=== PATIENT | female | born 1945 | race Caucasian/White ===

== ENCOUNTER 2019-10-02 21:25 | Emergency (ER) | payer MEDICARE, BC, OTHER, SELFPAY ==
--- NOTE | ~2019-10-02 | CT_ITS ---
EXAMINATION: CT brain wo con DATE: 10/02/2019 22:11 INDICATION: Speech deficit. TECHNIQUE: Computed tomography (CT) of the head was performed without intravenous contrast. The mA wa s adjusted according to patient size. Iterative reconstruction technique was employed. The dose-lengt h product was 605.33 mGy-cm. COMPARISON: None FINDINGS: There is a hyperdensity in the left parietal sulcus, likely acute subarachnoid hemorrhage. There are scattered areas of low attenuation in the cerebral white matter. There is no acute ischemic infarct or abnormal mass lesion. The ventricles are normal in size. There is a trace right mastoid e ffusion. There is mild mucosal thickening in the ethmoid sinuses. There are likely changes of ocular lens replacement surgeries. IMPRESSION: 1. Small volume of acute subarachnoid hemorrhage in a left parietal sulcus. 2. Mild nonspecific cerebral white matter disease, which likely represents chronic small vessel ische bela disease. Reviewed, dictated and finalized at location A. [employer] .NET DEVELOPER IMPRESSION: 1. Small volume of acute subarachnoid hemorrhage in a left parietal sulcus. 2. Mild nonspecific cerebral white matter disease, which likely represents downstairs maid silvia small vessel ischemic disease.
[2019-10-02 21:34] VITALS: BP 186/112; PULSE 109; RESP 18; TEMP 37.1; O2SAT 98
--- NOTE | 2019-10-02 21:56 | ED.NEUROSD ---
HPI - Neuro Symptoms/Deficit General Chief Complaint: Neuro Symptoms/Deficit Stated Complaint: difficulty speaking Time Seen by Provider: 10/02/19 21:28 Source: patient and RN notes reviewed Mode of arrival: ambulatory Limitations: no limitations History of Present Illness HPI Narrative: Pt is a 74 y/o female who presents to the ED with c/o a headache which occurred this morning. She states she went back to bed to try to alleviate her headache. She reports her headache was resolved when she woke up from her nap. However, when she woke up, she started to experience increased confusion and increased generalized weakness. She reports she was trying to speak to her son, but was unable to formulate her words. However, she denies a fever, chest pain, SOB, a cough, N/V/D, dysuria, urinary frequency, or a fall due to her symptoms. Onset (ago): hour(s) (this morning) Location: speech (unable to formulate her words properly) and other (increasingly confused) History of same: No Relieving factors: none Exacerbating factors: none Context: sudden onset (after awaking from her nap) Associated symptoms: confusion and weakness (increased) Related Data Home Medications Medication Instructions Recorded Confirmed acetaminophen 650 mg PO Q12H PRN 09/14/19 famotidine 20 mg PO DAILY 09/14/19 fluticasone propionate [Flonase 1 spray INTRANASAL BID PRN 09/14/19 Allergy Relief] loratadine 10 mg PO DAILY 09/14/19 meloxicam 15 mg PO DAILY 09/14/19 metformin 500 mg PO BID 09/14/19 omeprazole 20 mg PO DAILY 09/14/19 Allergies Allergy/AdvReac Type Severity Reaction Status Date / Time morphine Allergy Other Verified 10/02/19 21:41 sulfamethoxazole Allergy Confusion Verified 10/02/19 21:41 [From Bactrim] trimethoprim [From Bactrim] Allergy Confusion Verified 10/02/19 21:41 tramadol AdvReac Itching Verified 10/02/19 21:41 Review of Systems Review of Systems: All systems reviewed & are unremarkable except as noted in HPI and below Constitutional: Constitutional: Denies fever(s), Reports weakness (increased) and Denies other (a fall due to her symptoms) Cardiovascular: Cardiovascular: Denies chest pain Respiratory: Respiratory: Denies cough and Denies dyspnea Gastrointestinal: Gastrointestinal: Denies diarrhea, Denies nausea and Denies vomiting Genitourinary: Genitourinary: Denies nocturia and Denies dysuria Neurologic: Reports headache(s) and Reports other (increased confusion; unable to formulate words) [facility] Past Medical History Medical History (Updated 10/03/19 @ 00:49 by Lacho Teresa MD) Diabetes Surgical History Surgical History (Updated 10/02/19 @ 22:00 by Viridiana Schroeder) No pertinent past surgical history Social History Social History (Updated 10/02/19 @ 22:00 by Viridiana Schroeder) Smoking status: Smoker, status unknown Gender identity (if verbalized by the patient): Female Exam Narrative: Exam Narrative: Constitutional: Healthy appearing, no acute distress, well nourished. HENMT: Lips normal, moist mucous membranes. Eyes: Conjunctive normal, PERRL Resp: Normal respiratory effect, clear to auscultation bilaterally. Cardio: Regular rhythm, no murmurs. Tachycardia. GI: Soft, non-tender, normal bowel sounds. Back/Spine/Pelvis: Full ROM Skin: Normal color, dry skin, warm Neuro: Oriented x 3, alert, normal speech Extremities: Full ROM Psych: Mental status grossly normal, normal affect. Course Consultations Consultation #1: Discussed case with Dr. Gallardo, ED Accepting Physician, who agrees pt for the transfer after discussing with neurosurgery. Date: 10/02/19 Time: 23:23 Vital Signs Vital signs: Vital Signs Temperature 37.1 C 10/02/19 21:34 Pulse Rate 109 H 10/02/19 21:34 Respiratory Rate 18 10/02/19 21:34 Blood Pressure 186/112 H 10/02/19 21:34 Pulse Oximetry 98 10/02/19 21:34 Temperature 37.1 C 10/02/19 21:34 Pulse Rate 103 H 10/03/19 00:11 Respiratory Rate 22 H 0
[2019-10-02 22:44] LABS: Basophils Absolute Auto 0.1 K/mm3 (0.0-0.1); Basophils Percent Auto 0.9 % (0.2-1.2); Eosinophils Absolute Auto 0.1 K/mm3 (0-0.3); Eosinophils Percent Auto 1.1 % (0-4.4); Hemoglobin 14.4 g/dL (12.0-15.0); Immature Granulocyte Absolute 0.02 K/mm3 (0.00-0.031); Immature Granulocyte Percent A 0.3 % (0-0.5); Lymphocytes Absolute Auto 1.21 K/mm3 (0.9-3.2); Lymphocytes Percent Auto 18.8 % (18.3-44.2); Mean Corpuscular HGB Conc 34.3 g/dl (32-36); Mean Corpuscular Hemoglobin 31.4 pg (26-34); Mean Corpuscular Volume 91.5 fl (80-100); Mean Platelet Volume 8.9 fl (7.4-10.4); Monocytes Absolute Auto 0.6 K/mm3 (0.1-0.6); Neutrophils Absolute Auto 4.5 K/mm3 (1.3-6.7); Neutrophils Percent Auto 69.9 % (45.5-73.1); Platelet Count Result 257 k/mm3 (150-375); Red Blood Count 4.59 M/mm3 (4.2-5.4); Red Cell Distribution Width 12.9 % (11.5-14.5); White Blood Count 6.4 K/mm3 (4.5-10.0)
[2019-10-02 22:48] LABS: Add Urine Microscopic? YES; Appearance Urine Clear (Clear); Bacteria Urine 2+ /hpf; Bilirubin Urine Negative (Negative); Blood Urine Negative (Negative); Color Urine Straw (Yellow); Glucose Urine UA Negative (Negative); Ketones Urine 1+ mg/dL (Negative); Leukocyte Esterase Ur 1+ LEU/UL (Negative); Nitrate Urine Negative (Negative); Protein Urine Negative (Negative); RBC Urine 0-2 /hpf (0-2); Specific Grav Ur 1.012 (1.001-1.035); Squamous Epithelial Cell Urine Rare /hpf (Few); Urobilinogen Urine Negative mg/dL (<2.0); WBC Urine 21-30 /hpf
[2019-10-02 22:54] LABS: Prothrombin Time 12.6 Seconds (11.1-14.7)
[2019-10-02 22:57] VITALS: BP 145/72; PULSE 109; RESP 22; O2SAT 97
[2019-10-02 22:57] LABS: Alanine Aminotransferase 35 U/L (4-35); Albumin Level 4.3 g/dL (3.5-5.1); Alkaline Phosphatase 64 U/L (38-126); Aspartate Amino Transferase 26 U/L (14-36); Bilirubin,Total 0.3 mg/dL (0.2-1.3); Blood Urea Nitrogen 15 mg/dL (7-17); Calcium 9.5 mg/dL (8.4-10.2); Carbon Dioxide 21 mmol/L (22-30); Chloride 102 mmol/L (98-107); Estimated CRCL calculation 97 ml/min; Estimated Glomerular Filt Rate > 60; Glucose 121 mg/dL (65-105); Potassium 3.9 mmol/L (3.4-5.0); Sodium 134 mmol/L (137-145)
[2019-10-02] MEDS: SODIUM CHLORIDE 0.9% IV 1,000 ML 999 ML IV CONT (23:00)
[2019-10-03 00:11] VITALS: BP 166/82; PULSE 103; RESP 22; O2SAT 99
--- NOTE | 2019-10-03 00:15 | PC.NURSE ---
Called [facility] to transport patient to [place]. [facility] declined
[2019-10-03 01:02] VITALS: BP 156/69; PULSE 108; RESP 22; O2SAT 96
[2019-10-03 01:13] VITALS: BP 156/69; PULSE 106; RESP 22; O2SAT 95
--- NOTE | 2019-10-03 01:14 | PC.NURSE ---
called [facility] to transport patient to [place]. ETA [phone]
== END 2019-10-03 01:15 | disposition short-term general hospital (02) ==
PROVIDERS: Emergency Provider Emergency Medicine; PCP Family Medicine
DX: I60.9 Nontraumatic subarachnoid hemorrhage, unspecified (principal); N39.0 Urinary tract infection, site not specified; E11.9 Type 2 diabetes mellitus without complications; Z79.84 Long term (current) use of oral hypoglycemic drugs; R51 Headache
CPT/HCPCS: 36415; 70450; 80053; 81001; 85025; 85610; 85730; 87077; 87086; 87088; 87186; 96365; 99291; J0696; J7030

== ENCOUNTER 2021-12-09 07:43 | Outpatient (CLI) | payer MEDICARE, BC, OTHER, SELFPAY ==
--- NOTE | ~2021-12-09 | MR_ITS ---
EXAMINATION: MR brain/brain stem wo/w con EXAM DATE: 12/09/2021 08:46 INDICATION: Unsteady gait . TECHNIQUE: Magnetic resonance imaging (MRI) of the brain/brain stem obtained without contrast. Sagit willi T1, axial diffusion, gradient echo (T2*), T1, T2, FLAIR sequences obtained. Patient was then inj ected with 18 cc intravenous Multihance contrast. Axial and coronal postcontrast T1 weighted sequence s obtained. Correlation is made to . Head CT 10/02/2019 FINDINGS: There are no areas of restricted diffusion to suggest acute infarction. There is no acute hemorrhage seen on the T2*, a hemosiderin sensitive sequence. No intraparenchymal brain mass lesion. There is mild periventricular and subcortical T2/FLAIR signal hyperintensity, nonspecific but probab ly related to small vessel ischemic disease (microangiopathy). There are no extra-axial collections . Flow voids are seen in the cerebral arteries on the T2-weighted sequences consistent with their ex pected patency. The orbits are unremarkable. Soft tissue is unremarkable. There are no areas of ab normal enhancement on the postcontrast images. IMPRESSION: Mild microangiopathy. Reviewed, dictated and finalized at location B. IMPRESSION: Mild microangiopathy.
[2021-12-09 08:23] LABS: Estimated Glomerular Filt Rate > 60
== END 2021-12-09 07:44 | disposition home or self-care (01) ==
LOC: ANHIMG 07:48
PROVIDERS: PCP Internal Medicine; Visit Provider Internal Medicine
DX: R26.81 Unsteadiness on feet (principal); R93.0 Abnormal findings on diagnostic imaging of skull and head, not elsewhere classified
CPT/HCPCS: 70553; A9577

== ENCOUNTER 2021-12-26 01:30 | Day surgery (SDC) | payer MEDICARE, BC, OTHER, SELFPAY ==
[2021-12-17 10:41] VITALS: BMI 34.7
[2021-12-26 07:42] VITALS: BP 127/75; PULSE 110; RESP 18; TEMP 36.7; O2SAT 98; BMI 33.7
--- NOTE | 2021-12-26 07:45 | WPDANESEPPF ---
Anes - Initial Pre Proc Eval Procedure: Operation Date: 12/26/21 08:30 Proposed Procedures p Screening Colonoscopy - Get Gan MD Date/Time: 12/26/21 07:45 Surgeon: Get Gan MD Pre Op Diagnosis: neoplasm screening Patient Data Age: 76 Gender: F Height: 1.57 m Weight: 86.3 kg Allergies Allergy/AdvReac Type Severity Reaction Status Date / Time aloe Allergy Itching Verified 12/26/21 07:40 morphine Allergy Other Verified 12/26/21 07:40 sulfamethoxazole Allergy Confusion Verified 12/26/21 07:40 [From Bactrim] trimethoprim [From Bactrim] Allergy Confusion Verified 12/26/21 07:40 tramadol AdvReac Itching Verified 12/26/21 07:40 Home Medications Medication Instructions Recorded Confirmed Type acetaminophen 650 mg PO Q12H PRN 09/14/19 12/17/21 History famotidine 20 mg PO DAILY 09/14/19 12/17/21 History fluticasone propionate [Flonase 1 spray INTRANASAL BID PRN 09/14/19 12/17/21 History Allergy Relief] metformin 500 mg PO BID 09/14/19 12/17/21 History omeprazole 20 mg PO DAILY 09/14/19 12/17/21 History calcium carbonate-vitamin D3 [All 1 tablet PO DAILY 12/17/21 12/17/21 History Day Calcium] cholecalciferol (vitamin D3) 50 mcg PO DAILY 12/17/21 12/17/21 History [Vitamin D3] fexofenadine 180 mg PO DAILY 12/17/21 12/17/21 History glucosamine sulfate [Glucosamine] 500 mg PO DAILY 12/17/21 12/17/21 History mirabegron [Myrbetriq] 25 mg PO DAILY 12/17/21 12/17/21 History vitamin E 450 mg PO DAILY 12/17/21 12/17/21 History Patient hx anesthesia problems: none Family hx anesthesia problems: none Results Review: All pre-operative results and documents have been reviewed as part of the pre-operative evaluation. [facility] Past Medical History Medical History (Updated 12/26/21 @ 07:47 by Avtar Coles MD) CVA (cerebral vascular accident) Diabetes PUD (peptic ulcer disease) Surgical History Surgical History (Updated 02/02/20 @ 22:00 by Viridiana Schroeder) No pertinent past surgical history Social History Social History (Updated 10/02/19 @ 22:00 by Viridiana Schroeder) Smoking status: Smoker, status unknown Substance use type: does not use Living arrangements: alone Gender identity (if verbalized by the patient): Female Spiritual care concerns: No Anes - Eval Final PreProcedure Day of Procedure 12/26/21 07:45 Patient weight: obese Heart: regular rate and rhythm Lungs: clear to auscultation and normal air movement Airway: Mallampati scale class II Neurological: alert and oriented Last oral intake: >/= 8 hours ASA classification: III Emergent: no Anesthetic plan: proceed Anesthesia type and monitoring: general GIVS Results Review: All pre-operative results and documents have been reviewed as part of the pre-operative evaluation. Informed Consent: The patient's anesthetic plan and its attendant risks and benefits were discussed with the patient/family/POA. Questions were solicited and answers provided to the satisfaction of the patient/family/POA.
[2021-12-26] MEDS: LACTATED RINGERS 1,000 ML 150 ML IV CONT (07:54)
[2021-12-26 08:07] LABS: Glucose Point of Care 116 mg/dl (65-105)
--- NOTE | 2021-12-26 08:25 | WPDGICN ---
Assessment and Plan Assessment and plan (1) Epigastric abdominal pain: Code(s): R10.13 - Epigastric pain Status: Acute Assessment and Plan: Patient complains of upper abdominal epigastric pain that is burning in nature after eating. Particularly with spicy foods. Pain is poorly responsive to current dose of both omeprazole and famotidine. She does give a distant history of ulcer disease 20 years ago. Plan is for EGD to assess more thoroughly. Further recommendations will be given after endoscopy. (2) Encounter for screening colonoscopy: Code(s): Z12.11 - Encounter for screening for malignant neoplasm of colon Status: Acute Assessment and Plan: Patient presents for screening colonoscopy. Appears to be at average risk for colon polyps. GI Consult Note Consult date/time: 12/26/21 08:25 HPI: Sultana Haider is a 76 year old female Presents for colonoscopy and EGD. Patient desires neoplasia screening colonoscopy. She reports her current weight appetite bowel movements normal. She denies abdominal pain. She has had no bleeding. Family history is noncontributory. Patient also complains of epigastric pain after eating she feels 3 distinct areas in the upper portion of her abdomen that her burning this occurs shortly after eating. She states that 21 years ago had an endoscopy and was found to have several gastric ulcers. Since that time she has been maintained on omeprazole 20mg p.o. daily. This is also supplemented with famotidine 20mg p.o. daily and has failed to alleviate her epigastric burning pain. She denies any weight loss. She has had no bleeding. Family history is noncontributory. Patient's past medical history is significant for breast cancer 20 years ago. Review of Systems Review of Systems: All systems reviewed & are unremarkable except as noted in HPI and below [facility] Past Medical History Medical History (Updated 12/26/21 @ 08:27 by Get Gan MD) CVA (cerebral vascular accident) Diabetes PUD (peptic ulcer disease) Surgical History Surgical History (Updated 10/02/19 @ 22:00 by Viridiana Schroeder) No pertinent past surgical history Social History Social History (Updated 10/02/19 @ 22:00 by Viridiana Schroeder) Smoking status: Smoker, status unknown Substance use type: does not use Living arrangements: alone Gender identity (if verbalized by the patient): Female Spiritual care concerns: No Meds Home Medications and Allergies Home Medications Medication Instructions Recorded Confirmed Type acetaminophen 650 mg PO Q12H PRN 09/14/19 12/17/21 History famotidine 20 mg PO DAILY 09/14/19 12/17/21 History fluticasone propionate [Flonase 1 spray INTRANASAL BID PRN 09/14/19 12/17/21 History Allergy Relief] metformin 500 mg PO BID 09/14/19 12/17/21 History omeprazole 20 mg PO DAILY 09/14/19 12/17/21 History calcium carbonate-vitamin D3 [All 1 tablet PO DAILY 12/17/21 12/17/21 History Day Calcium] cholecalciferol (vitamin D3) 50 mcg PO DAILY 12/17/21 12/17/21 History [Vitamin D3] fexofenadine 180 mg PO DAILY 12/17/21 12/17/21 History glucosamine sulfate [Glucosamine] 500 mg PO DAILY 12/17/21 12/17/21 History mirabegron [Myrbetriq] 25 mg PO DAILY 12/17/21 12/17/21 History vitamin E 450 mg PO DAILY 12/17/21 12/17/21 History Allergies Allergy/AdvReac Type Severity Reaction Status Date / Time aloe Allergy Itching Verified 12/26/21 07:40 morphine Allergy Other Verified 12/26/21 07:40 sulfamethoxazole Allergy Confusion Verified 12/26/21 07:40 [From Bactrim] trimethoprim [From Bactrim] Allergy Confusion Verified 12/26/21 07:40 tramadol AdvReac Itching Verified 12/26/21 07:40 Vital Signs Vital Signs - 24 hr 12/26/21 07:42 Temperature 98.1 F Pulse Rate 110 H Respiratory Rate 18 Blood Pressure 127/75 Pulse Oximetry 98 Exam Narrative: Physical exam reveals patient to be alert. Vital signs stable. HEENT exam
[2021-12-26] MEDS: BENZOCAINE (*SP) 60 ML SPRAY CAN (HURRICAINE) 1 SPRAY MUCOUS MEM (08:40)
--- NOTE | 2021-12-26 08:53 | SUR.OPER ---
EGD ended at 845. Colonoscopy started at 852.
[2021-12-26 09:10] VITALS: BP 85/51; PULSE 88; RESP 17; O2SAT 94
[2021-12-26 09:20] VITALS: BP 110/68; PULSE 92; RESP 18; O2SAT 95
[2021-12-26 09:30] VITALS: BP 122/57; PULSE 93; RESP 23; O2SAT 95
== END 2021-12-26 09:41 | disposition home or self-care (01) ==
PROVIDERS: PCP Internal Medicine; Visit Provider Internal Medicine Gastroenterology
PROC: 0DJ08ZZ Inspection of Upper Intestinal Tract, Via Natural or Artificial Opening Endoscopic (ICD-10-PCS; CPT 43235; principal; 2021-12-26 08:30)
DX: Z12.11 Encounter for screening for malignant neoplasm of colon (principal); D12.2 Benign neoplasm of ascending colon; K64.8 Other hemorrhoids; R10.13 Epigastric pain; E11.9 Type 2 diabetes mellitus without complications; Z86.73 Personal history of transient ischemic attack (TIA), and cerebral infarction without residual deficits; Z87.11 Personal history of peptic ulcer disease; Z79.84 Long term (current) use of oral hypoglycemic drugs; E66.9 Obesity, unspecified; Z68.33 Body mass index [BMI] 33.0-33.9, adult
CPT/HCPCS: 45385; 43239; 82948; 87081; 88305; J7120

== ENCOUNTER → 2022-02-12 13:29 | Outpatient (CLI) | payer MEDICARE, BC, SELFPAY ==
--- NOTE | ~2022-02-12 | DEXA_ITS ---
Bone Density Report Name: FADY JETER Age: 76 Sex: Female Ethnicity: White Date of : 1945 Indication: postmenopausal; screening for osteoporosis; parental hip fracture; height loss; prior fracture; hysterectomy; Referring Provider: Benji, Megan Study: Bone densitometry was performed. Exam Date: February 12, 2022 Accession number: [id number] Bone Density: Region BMD T-score Z-score Classification AP Spine (L1, L3, L4) 1.180 1.2 3.7 Normal Femoral Neck (Left) 0.599 -2.3 -0.1 Osteopenia Total Hip (Left) 0.777 -1.3 0.5 Osteopenia Femoral Neck (Right) 0.704 -1.3 0.8 Osteopenia Total Hip (Right) 0.827 -0.9 0.9 Normal Total Hip Mean 0.802 -1.1 0.7 Osteopenia World Health Organization criteria for BMD impression classify patients as: Normal (T-score at or above -1.0), Osteopenia (T-score between -1.0 and -2.5), or Osteoporosis (T-score at or below -2.5). 10-year Fracture Risk: FRAX not reported because: Treated for osteoporosis Clinical Information Provided by Patient: Has had a low trauma fracture Parent has had a hip fracture Is being treated for osteoporosis Has used the following medications: Fosamax (i.e. alendronate), Vitamin D, Calcium Has the following medical conditions: Hysterectomy, Left breast ca stage 4 mastectomy with chemo/radiation -1999 Patient maximum height was 65.5 Menopause Age: 28 Does not regularly consume dairy products Drinks caffeinated beverages Onset of menses at age 16 Number of children 2 Impression: The patient has low bone mass, based on the Left Femoral Neck T-score. The patient has risk factors, including: parental hip fracture, previous fracture. Discussion: It is important to ask patients whether they are taking their medications and to encourage continued and appropriate compliance with their osteoporosis therapies to reduce fracture risk. It is also important to review their risk factors and encourage appropriate calcium and vitamin D intakes, exercise, fall prevention and other lifestyle measures. Follow-Up: Consider a repeat BMD and Vertebral Fracture Assessment (VFA) exam in 2 years or sooner if medically necessary, to reassess this patient's status. Reported by: CHRISTIAN on 02/12/2022 3:51:00 PM. Reviewed, dictated and finalized at location Malini DESAI
--- NOTE | ~2022-02-12 | MM_ITS ---
EXAMINATION: MM scrn francisco javier implant RT w minnie HISTORY: Screening mammogram TECHNIQUE: Craniocaudal and mediolateral oblique 3-D tomosynthesis images with implant displacement a nd synthetic 2-D images were generated. Craniocaudal and mediolateral oblique views of the breasts wi thout implant displacement were obtained using full field digital mammography. CAD analysis was submi tted and interpreted. COMPARISON: No prior mammogram is available for comparison at this institution. BREAST PARENCHYMAL COMPOSITION: There are scattered areas of fibroglandular density. FINDINGS: There is a subpectoral silicone implant which appears partially collapsed. There is no evid ence of suspicious mass, calcification, or architectural distortion to suggest malignancy in the righ t breast. There has been no suspicious interval change. IMPRESSION: 1. No mammographic evidence of malignancy. 2. Recommend routine screening mammography in one year. BI-RADS Category 1: Negative Reviewed, dictated and finalized at location A.
== END ==
PROVIDERS: PCP Internal Medicine; Visit Provider Internal Medicine
DX: Z12.31 Encounter for screening mammogram for malignant neoplasm of breast (principal); Z78.0 Asymptomatic menopausal state; M85.852 Other specified disorders of bone density and structure, left thigh; M85.851 Other specified disorders of bone density and structure, right thigh
CPT/HCPCS: 77063; 77067; 77080

== ENCOUNTER 2024-02-04 12:20 | Outpatient (CLI) | payer MEDICARE, BC, OTHER, SELFPAY ==
--- NOTE | ~2024-02-04 | US_ITS ---
US soft tissue chest Ordering provider: Megan Leblanc, History: . LUMP OF SKIN . Comparison: None. Technique: Ultrasound of the area of concern inferior to the left breast is done. FINDINGS/impression: No definite abnormality seen. Reviewed, dictated and finalized at location A.
== END 2024-02-04 12:21 | disposition home or self-care (01) ==
LOC: ANHIMG 12:20
PROVIDERS: PCP Internal Medicine; Visit Provider Internal Medicine
DX: R22.2 Localized swelling, mass and lump, trunk (principal)
CPT/HCPCS: 76604

== ENCOUNTER 2025-04-30 18:03 | Emergency (ER) | payer MEDICARE, BC, OTHER, SELFPAY ==
--- NOTE | ~2025-04-30 | XR_ITS ---
EXAMINATION: XR shoulder RT min 2V DATE: 04/30/2025 23:39 INDICATION: Right shoulder pain post fall TECHNIQUE: AP internally rotated, AP externally rotated and transscapular Y views of the right shoulder were obtained. COMPARISON: None FINDINGS: Normal alignment. No fracture. Moderate osteoarthritis at the right acromioclavicular joint. Severeosteoarthritis at the right glenohumeral joint with large marginal ossified swelling the inferomedial aspect of the humeral head. Loose osteochondral body at the deep subscapular recess.Old fracture with callus formation at the posterior right fourth-seventh ribs. Soft tissues are unremarkable. Visualized portion of the right lung are clear IMPRESSION: 1. Severe right glenohumeral and moderate acromioclavicular osteoarthritis without acute osseous abnormality at the right shoulder. 2. A few old healed posterior right rib fractures. Reviewed, dictated and finalized at location A. IMPRESSION: 1. Severe right glenohumeral and moderate acromioclavicular osteoarthritis with out acute osseous abnormality at the right shoulder. 2. A few old healed posterior right rib fractures.
--- NOTE | ~2025-04-30 | CT_ITS ---
EXAMINATION: CT cervical spine wo con DATE: 04/30/2025 23:36 INDICATION: Fall with neck pain. TECHNIQUE: Computed tomography (CT) of the cervical spine was performed without intravenous contrast. Automated exposure control and iterative reconstruction technique were employed. The dose-length product was 236.29 mGy-cm. COMPARISON: None FINDINGS: Severe osteoarthritis at the atlantoaxial articulation. 3 mm anterolisthesis C4 on C5 and 1-2 mm anterolisthesis C6 on C7. Minimal likely developmental central invagination of the superior and inferior endplates of C3. Vertebral body heights otherwise normal. No acute fracture. Moderate to severe disc height loss with severe right and moderate left uncovertebral osteoarthritis at C5-C6. Mild disc height loss at C4-C5 and C6-C7. No central canal stenosis. Bilateral multilevel moderate and severe cervical facet osteoarthritis which contribute to mild neural foraminal stenosis on the left at C4-C5 and C5-C6 and on the right at C3-C4, C5-C6 and C6-C7. Atherosclerotic calcific lesions at the bilateral c arotid bulbs. Cervical soft tissues are otherwise unremarkable. Apical pleural- parenchymal scarring, moderate on the left and mild on the right. IMPRESSION: 1. Moderate to severe cervical spondylosis without acute osseous abnormality. Reviewed, dictated and finalized at location A.
--- NOTE | ~2025-04-30 | CT_ITS ---
EXAMINATION: CT brain wo con DATE: 04/30/2025 19:42 INDICATION: Fall with head injury TECHNIQUE: Computed tomography (CT) of the head was performed without intravenous contrast. Sagittal and coronal reconstructions were performed. The mA was adjusted according to patient size. Iterative reconstruction technique was employed. The dose-length product was 681.00 mGy-cm. COMPARISON: head CT dated 10/02/2019 and brain MR dated 12/09/2021 FINDINGS: No fracture. No acute intracranial hemorrhage, acute infarction or abnormal extra axial fluid collection. Interval progression of now mild to moderate scattered white matter hypoattenuation consistent with chronic small vessel ischemic disease. Ventricles are normal and symmetric. No mass/mass effect. Changes of bilateral intraocular lens replacement. The orbits, paranasal sinuses and mastoid air cells are normal. IMPRESSION: 1. No fracture or acute intracranial process. 2. Interval progression of mild to moderate scattered white matter hypoattenuation consistent with chronic small vessel ischemic disease. Reviewed, dictated and finalized at location A. IMPRESSION: 1. No fracture or acute intracranial process. 2. Interval progression of mild to moderate scattered white matter hypoattenuat ion consistent with chronic small vessel ischemic disease.
--- NOTE | ~2025-04-30 | CT_ITS ---
EXAMINATION: CT diagnostic chest w con DATE: 04/30/2025 23:36 INDICATION: fall, trauma, R posterior rib pain TECHNIQUE: Computed tomography (CT) of the chest was performed with 100 mL Omnipaque-350 intravenous contrast. Additional 3D reconstructions utilizing coronal maximum intensity projection (MIP) were performed. Automated exposure control and iterative reconstruction technique were employed. The dose-length product was 509.36 mGy-cm. COMPARISON: None FINDINGS: Mild dependent atelectasis in the bilateral lower lobes. There is subpleural fibrosis along the anterior left upper lobe and lingula likely related to radiation treatment for left breast cancer with decrease in size of the left breast and multiple surgical clips consistent with prior left partial maste ctomy. No pneumonia, pulmonary edema, pleural effusion or pneumothorax. Heart size is normal. Atherosclerotic coronary artery calcification. No pericardial effusion. Thoracic aorta is normal in caliber with no dissection. No pathologically enlarged thoracic lymphadenopathy. Visualized upper abdomen is unremarkable. Severe right and moderate left glenohumeral osteoarthritis. Moderate thoracic spondylosis. There is calcification associated with subacute early chronic healing fractures of the posterior right fourth-seventh ribs. There is an acute nondisplaced fractures of the posterior right eighth rib. IMPRESSION: 1. Acute appearing nondisplaced posterior right eighth rib fracture with some additional subacute to early chronic healing fractures of the posterior right fourth-seventh ribs. No pneumothorax or other acute cardiopulmonary disease. Reviewed, dictated and finalized at location A. IMPRESSION: 1. Acute appearing nondisplaced posterior right eighth rib fracture with some a dditional subacute to early chronic healing fractures of the posterior right fo urth-seventh ribs. No pneumothorax or other acute cardiopulmonary disease.
--- NOTE | ~2025-04-30 | XR_ITS ---
EXAMINATION: XR chest 2V DATE: 04/30/2025 19:49 INDICATION: Rib pain post fall TECHNIQUE: PA and lateral views of the chest were obtained. COMPARISON: None FINDINGS: The lungs are clear with no focal airspace opacities, pulmonary edema, pleural effusion or pneumothorax. Heart size is normal. Likely prior partial left mastectomy with left breast appearing slightly smaller than the right with multiple surgical clips. Calcified formation about likely healing subacute fractures of the posterior right fourth-seventh ribs. Mild thoracolumbar levocurvature with moderate thoracic and moderate to severe upper lumbar spondylosis. Right glenohumeral osteoarthritis with moderate sized marginal osteophytes and prominent loose osteochondral body at the deep subscapular recess. IMPRESSION: 1. No acute cardiopulmonary disease. 2. A few likely subacute healing posterior right fourth-seventh rib fractures. Reviewed, dictated and finalized at location A.
--- OUTSIDE RECORDS SUMMARY | 2025-04-30 18:05 | XMS_ITS | Encounter Summary ---
Author Organization [employer] [facility] Address 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
--- OUTSIDE RECORDS SUMMARY | 2025-04-30 18:05 | XMS_ITS | Encounter Summary ---
Author Organization [facility] Address [address] [place] [address] Care Team Providers Care Tax Services Professional Name Role Phone Megan Leblanc MD Primary Care Provider [phone] Emiliano Ventura MD Unavailable Jagdish Aden MD Unavailable Encounter Details Date Type Department Care Team (Latest Contact Info) Description 03/08/2025 Results Follow-Up [facility] - [address] [address] [address] [place] [address] [place] [address] [place] [address] [address] [place], [place] [id number] CBC W/DIFF AUTOMATED, COMPREHENSIVE METABOLIC PANEL, LIPID PANEL, Additional followed-up results: 3 Social History Tobacco Use Types Packs/Day Years Used Date Smoking Tobacco: Never Smokeless Tobacco: Never Comments:Counseled by Dr. Hillary salas. Alcohol Use Standard Drinks/Week Comments Not Currently 3.3 (1 standard drink = 0.6 oz p ure alcohol) AUDIT-C Answer Date Recorded Q1: How often do you have a drink containing alcohol? Never 10/12/2024 Q2: How many drinks containi ng alcohol do you have on a typical day when you are drinking? Patient does not drink Q3: How often do you have si x or more drinks on one occasion? 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 Gender Identity Female 12/06/2024 8:08 AM CDT Sexual Orientation Straight 12/06/2024 8: 08 AM CDT documented as of this encounter Plan of Treatment Upcoming Encounters Date Type Department Care Team (Lynn Stanford) Description 05/02/2025 8:45 AM CDT Office Visit [facility] Physical Therapy [address] [place] [id number] Viv[address] [place], [place] [address] 05/02/2025 1:40 PM CDT Office Visit [facility] [address] [address] [address] [place] [address] Megan Leblanc MD [address] [place] [address] 05/09/2025 12:45 PM CDT Office Visit [facility] Physical [address] [address] Vivienne [place], [place] [address] 05/16/2025 1:30 PM CDT Office Visit [facility] Physical Therapy [address] [place] [phone] Vivienne Rapp, PT [place], [place] [id number] 05/23/2025 3:00 PM CDT Office Visit [facility] Physical Therapy [facility] [address] [address] Vivienne [place]ap, [place] [address] 05/30/2025 3:00 PM CDT Office Visit [facility] Physical Therapy [facility] [address] [address] Viv[place], [place] [address] 06/06/2025 3:00 PM CDT Office Visit [facility] Physical [address] [address] Vivienne Rapp, PT [place], [place] [id number] 10/25/2025 2:00 PM TENDERIZER TENDER Office Visit [facility] - [address] [address] [address] [place] [address] Megan Leblanc MD [address] [place] [address] 02/07/2026 2:20 PM CDT Office Visit [facility] - [address] [address] Jagdish Aden MD [address] [address] documented as of this encounter Visit Diagnoses Not on filedocumented in this encounter Additional Health Concerns Assessment Noted Time PHQ-9 Depression Total Score: 14 07/2 025 1:41 PM CDT documented as of this encounter Care Teams Tax Services Professional Relationship Specialty Start Date End Date Megan Leblanc MD [address] [address] PCP - General INTERNAL MEDICINE 10/23/21 Emiliano Ventura MD [address] [address] NEUROLOGY 10/12/24 Jagdish Aden MD [facility] [address] Consulting Physician Internal Medicine Pulmonary Disease 10/12/24 documented as of this encounter
--- OUTSIDE RECORDS SUMMARY | 2025-04-30 18:05 | XMS_ITS | Clinical Summary ---
Author Organization [facility] Address [address] [place] [address] Care Team Providers Care Air Conditioning Specialist Name Role Phone Megan Leblanc MD Primary Care Provider [phone] Emiliano Ventura MD Unavailable Jagdish Aden MD Unavailable [phone] Allergies Active Allergy Reactions Criticality Noted Date Comments Aloe Itching Low 09/13/2014 Sulfamethoxazole-Trimetho prim Other (see comment) 10/23/2021 Cramping, diarrhea, and confusion. Morphine Other (see comment),GI Upset 06/07/2013 Reaction: flu like symptoms, Nitrofurantoin Myalgias 10/29/2022 Nuts Hives High 09/13/2014 Tramadol Itching 10/23/2021 Medications fluticasone propionate 50 MCG/ACT nasal spray 1 spray by Nasal route daily. Active glucosamine-ramon droitin 500-400 MG Cap Take 1 capsule by mouth daily. Active Calcium Carbonate Antacid 600 MG Chew Tab Chew 1 tablet by mouth daily. Active vitamin E 450 MG (1000 UT) Cap Take by mouth daily. Active zinc gluconate 50 MG Tab Take 1 tablet (50 mg total) by mouth daily. Active Cholecalciferol (VITAMIN D3 IMMUNE HEALTH OR) Active Ascorbic Acid (VITAMIN C IMMUNE HEALTH OR) Active acetaminophen CR 650 MG Tab CR 8 hr tablet Active Magnesium 400 MG TabIndications:N europathy Take 400 mg by mouth daily. 90 tablet 3 3 Active lidocaine (HM LIDOCAINE PATCH) 4 % patchIndications :Musculoskeletal chest pain Place 1 patch onto the skin daily. Remove & Discard patch within 12 hours or as directed by 30 patch 3 Active Additional Information Patient not taking.Reported on 03/07/2025 CPAP DEVICE, DME,Indications: HOPE (obstructive sleep apnea) Use during sleep; sending to [employer]. 1 Device 3 Active valACYclovir (VALTREX) 1 g tabletIndication s:Herpes zoster without complication Take 1 tablet (1,000 mg total) by mouth 2 (two) times daily. 14 tablet 3 Active Vitamin B12 100 MCG tablet Take 0.5 tablets (50 mcg total) by mouth daily. Active metoprolol succinate ER (TOPROL-XL) 25 MG 24 hr tabletIndication s:Essential tremor Take 0.5 tablets (12.5 mg total) by mouth daily. 45 tablet 1 5 Active buPROPion SR (WELLBUTRIN SR) 150 MG 12 hr tabletIndication s:Mild episode of recurrent major depressive disorder Take 1 tablet (150 mg total) by mouth 2 (two) times daily. 180 tablet 1 5 Active albuterol sulfate HFA 108 (90 Base) MCG/ACT inhalerIndicatio ns:Allergic rhinitis due to other allergic trigger, unspecified seasonality Inhale 2 puffs into the lungs every 6 (six) hours as needed for Wheezing. 18 g 4 5 Active alendronate (FOSAMAX) 70 MG tabletIndication s:Age-related osteoporosis without current pathological fracture Take 1 tablet (70 mg total) by mouth every 7 days. 4 tablet 11 5 Active cyclobenzaprine (FLEXERIL) 5 MG tabletIndication s:Pleurisy,Acute right-sided thoracic back pain Take 1 tablet (5 mg total) by mouth nightly as needed. 14 tablet 5 Active diphenoxylate-at ropine (LOMOTIL) 2.5-0.025 MG tabletIndication s:Diarrhea, unspecified type Take 1 tablet by mouth nightly as needed for Diarrhea. 30 tablet 1 5 Active empagliflozin (JARDIANCE) 10 MG tabletIndication s:Type 2 diabetes mellitus with hyperglycemia, without long-term current use of insulin ([facility]) Take 1 tablet (10 mg total) by mouth daily. 90 tablet 3 5 Active famotidine (PEPCID) 20 MG tabletIndication s:Gastroesophage al reflux disease without esophagitis Take 1 tablet (20 mg total) by mouth daily. 60 tablet 5 5 Active losartan (COZAAR) 50 MG tabletIndication s:Hypertension associated with type 2 diabetes mellitus ([facility] HHS/HCC),Primary hypertension Take 1 tablet (50 mg total) by mouth daily. 90 tablet 3 5 Active omeprazole (PRILOSEC) 20 MG capsuleIndicatio ns:Gastroesophag eal reflux disease without esophagitis Take 1 capsule (20 mg total) by mouth 2 (two) times daily. 180 capsule 3 5 Active rosuvastatin (CRESTOR) 10 MG tabletIndication s:Hyperlipidemia associated with type 2 diabetes mellitus ([facility] HHS/HCC) Take 1 tablet (10 mg total) by mouth nightly at bedtime. at bedtime 90 tablet 3 5 Active oxyCODONE-acetam inophen (PERCOCET) 5-325 MG tabletIndication s:Acute Pain < 7 Day Supply Take 1-2 tablets by mouth every 8 (eight) hours as needed for Pain. Indications: Acute Pain < 7 Day Supply 10 tablet 5 Active sertraline (ZOLOFT) 50 MG tabletIndication s:Mild episode of recurrent major depressive disorder,SANDRA (generalized anxiety disorder) Take 1 tablet (50 mg total) by mouth daily. 90 tablet 1 5 Active vibegron (GEMTESA) 75 MG tabletIndication s:Mixed stress and urge urinary incontinence Take 1 tablet (75 mg total) by mouth daily. 90 tablet 5 Active Active Problems Problem Noted Date Diagnosed Date Mild episode of recurrent major depressive disor logan 09/27/2022 Primary hypertension 04/18/2022 Age-related osteoporosis wit hout current pathological fracture 10/23/2021 OAB (overactive bladder) 10/23/2021 History of hemorrhagic cereb rovascular accident (CVA) with residual deficit 06/05/2021 Assessment & Plan (10/23/2021 6:41 PM BANJO REPAIR PERSON): Currently stable without any residual deficits. Avoid NSAIDs. Continue to follow with neurology. No concerns at this time. Noted known hypertensive Memory difficulties 01/23/2021 Other secondary scoliosis, thoracolumbar region 03/20/2020 Diabetes mellitus ([facility]) 09/22/2019 Overview (12/31/2021): Controlled on Metformin. On lisinopril 2.5 mg daily. Lifestyle modification including dietary changes to include less saturated fats, lean meat, more vegetables and exercise at least 30 min every day. Assessment & Plan (10/23/2021 6:41 PM BANJO REPAIR PERSON): Controlled. A1c of 5.6%. On Metformin. Lifestyle modification discussed. Diabetic diet encouraged. Low back pain 09/22/2019 Lumbar spondylosis 09/22/2019 Abnormal vaginal Pap smear 02/11/2017 Overview (10/23/2021): 12/2016: ASCUS, +HR HPV (non- 16/18) 11/2015: not enough cells; +HR HPV 11/2013: normal cells: +HR HPV 01/2017: colpo: atrophy 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 Pseudophakia of both eyes 12/06/2014 Pain in joint 10/20/2013 GERD (gastroesophageal reflux disease) 3 Personal history of malignant neoplasm of breast 06/07/2013 Generalized osteoarthritis 06/01/2012 Overview (10/23/2021): Generalized osteoarthritis History of left mastectomy 06/01/2012 Overview (10/23/2021): H/O left mastectomy Insomnia 06/01/2012 Overview (10/23/2021): Insomnia Lymphedema of upper extremity 06/01/2012 Overview (10/23/2021): Lymphedema of arm Anxiety state 07/02/2010 Hyperlipidemia associated wi th type 2 diabetes mellitus ([facility]) Resolved Problems Problem Noted Date Diagnosed Date Resolved Date Malignant tumor of breast ([facility]/HCC [facility]/HCC) 09/22/2019 08/08/2024 Assessment & Plan (10/23/2021 6:41 PM BANJO REPAIR PERSON): Has been in remission since the year 1999. No new concerns. Close monitoring. No longer following with oncology. Encounters Date Type Department Care Team Description 04/25/2025 Telephone [facility] Physical Therapy [address] [address] Ansley Jennings, HOSPICE CLINICAL MANAGER No Show 04/24/2025 Telephone [facility] - [address], [address] [place] [address] Jagdish Aden MD Orders 04/11/2025 2:15 PM CDT Office Visit [facility] Physical Therapy [address] [address] Megan Leblanc MD Tolle, Lisa C, PT Back Pain 04/11/2025 Travel 04/04/2025 11:00 AM CDT Office Visit [facility] Physical Therapy [address] [address] Megan Leblanc MD Tolle, Lisa C, PT Low Back Pain; Balance Problem 04/04/2025 Travel 03/21/2025 8:45 AM CDT Office Visit [facility] Physical Therapy [address] [address] Megan Leblanc MD Meyer, Debra S, HOSPICE CLINICAL MANAGER Back Pain 03/14/2025 3:00 PM CDT Office Visit [facility] Physical Therapy [address] [address] Megan Leblanc MD Tolle, Lisa C, PT Back Pain; Balance Problem 03/14/2025 Travel 03/08/2025 Results Follow-Up [facility] [place] [address] [address] [facility] [address] [place] [address] Megan Leblanc MD CBC W/DIFF AUTOMATED, COMPREHENSIVE METABOLIC PANEL, LIPID PANEL, Additional followed-up results: 3 03/07/2025 12:40 PM CDT Office Visit [facility] [place] [address] [address] [facility] [address] [place] [address] Megan Leblanc MD Follow Up (Chronic medical issues); Anxiety; Depression; Diabetes; Osteoporosis; Osteoarthritis; Sleep Problem; GERD; IBS (W/ diarrhea ); Urinary Incontinence (H/o); Back Pain; Tremors 03/07/2025 Travel 02/15/2025 Telephone [facility] [place] [address] [address] [place] [address] [address] [place] [address] Megan Leblanc MD Medication Request 02/08/2025 11:00 AM CDT Office Visit [facility] [place] [address] [facility] [address] [place] [id number] Jagdish Aden MD Follow Up 02/08/2025 Travel 02/07/2025 Scan HEALTH INFO SRVCS Scanned, [facility] Sleep Study (SCAN) from Last 3 Months Immunizations Immunization Administration Dates Next Due Fluzone High Dose (IIV, triv alent, 0.5mL) 08/08/2024 Fluzone High Dose - >Age 65 (Prefilled Syringe) 07/31/2023,06/20/2022 Influenza (Generic) 05/15/2015, 4,06/01/2012,2010 Influenza Adult (Generic) 09/03/2021,10/2019,08/12/2017,2012 PFIZER COVID-19 (ORIGINAL FORMULATION, PURPLE CAP) mRNA, LNP-S, PF, 30 MCG/0.3 ML DOSE 09/03/2021 Pneumococcal (Pneumovax 23) 06/08/2019 Pneumococcal (Prevnar 13) 12/19/2015 Tdap (Generic) 09/13/2014 Zoster (Zostavax) [address] Unt/0.65Ml 04/18/2015 Family History Medical History Relation Comments Alzheimers Brother Diabetes Brother Heart Disease Brother Arthritis Daughter Diabetes Daughter Emphysema Father Heart Disease Father Mental Health Father Ulcer Father Poor circulation Maternal Grandfather Lost his l eg Elephantasis Maternal Grandmother Arthritis Mother Hypertension Mother Mental Health Mother Stroke Mother Arthritis Sister Mental Health Sister Diabetes Son Kidney Disease Son Relation Status Comments Brother Daughter Alive Father Maternal Grandfather Maternal Grandmother Mother Sister Son Social History Tobacco Use Types Packs/Day Years Used Date Smoking Tobacco: Never Smokeless Tobacco: Never Tobacco Cessation:Counseling Given: Yes Comments:Counseled by Dr. Leblanc. Alcohol Use Standard Drinks/Week Comments Not Currently [...] AM CDT Legal Sex Female 11:08 AM BANJO REPAIR PERSON Gender Identity Female 12/06/2024 8:08 AM CDT Sexual Orientation Straight 12/06/2024 8: 08 AM CDT Last Filed Vital Signs Vital Sign Reading Time Taken Comments Blood Pressure 128/85 03/07/2025 12:45 PM CDT Pulse 94 03/07/2025 12:31 PM CDT Temperature 36 C (96.8 F) 03/07/2025 12:31 PM CDT Respiratory Rate 16 03/07/2025 12:31 PM CDT Oxygen Saturation 98% 03/07/2025 12:31 PM CDT Inhaled Oxygen Concentration - - Weight 86.2 kg (190 lb 1.6 oz) 03/07/2025 12:31 PM CDT Height 157.5 cm (5' 2) 03/07/2025 12:31 PM CDT Body Mass Index 34.77 03/07/2025 12:31 PM CDT Plan of Treatment Upcoming Encounters Date Type Department Care Team (Late st Contact Info) Description 05/02/2025 8:45 AM CDT Office Visit [facility] Physical Therapy [facility] [address] Vivienne [place], [place] [address] 05/02/2025 1:40 PM CDT Office Visit [facility] Medical Group [facility] [place] [address] [address] [place] [address] Megan Leblanc MD [address] [address] 05/09/2025 12:45 PM CDT Office Visit [facility] Physical Therapy [address] [place] [address] Vivienne Rapp, PT [place], [place] [address] 05/16/2025 1:30 PM CDT Office Visit [facility] Physical Therapy [address] [place] [address] Vivienne Rapp, PT [place], [place] [id number] 05/23/2025 3:00 PM CDT Office Visit [facility] Physical Therapy [facility] [address] [address] Vivienne [place], [place] [address] 05/30/2025 3:00 PM CDT Office Visit [facility] Physical Therapy [address] [address] Vivienne [place], [place] [address] 06/06/2025 3:00 PM CDT Office Visit [facility] Physical Therapy [address] [address] Vivienne [place], [place] [address] 10/25/2025 2:00 PM BANJO REPAIR PERSON Office Visit [facility] Medical Group [facility] - [place] [address] [address] [place] [address] Megan Leblanc MD [address] [address] 02/07/2026 2:20 PM CDT Office Visit [facility] Medical Group [facility] - [address] [address] Jagdish Aden MD [address] [address] Health Maintenance Due Date Last Done Comments Kidney Health Evaluation 1945 COVID-19 Vaccine ( - season) 2024 09/03/2021, 11/03/2020 DTaP, Tdap and Td Vaccines (2 - Td or Tdap) 09/13/2024 09/13/2014 Diabetes: Retinopathy Eye Exam 10/31/2024 10/31/2022 Hemoglobin A1C 09/07/2025 03/07/2025, 120 05/2024, 01/13/2024, Additional history exists RSV Immunization or 60+ Years (1 - 1-dose 75+ series) 10/12/2025 Postponed from 2020 (Going to Outside Clinic) Zoster Vaccines (2 of 3) 10/12/2025 04/18/2015 Pos tponed from 06/13/2015 (Going to Outside Clinic) Annual Medicare Wellness Visit 10/13/2025 10/12/2024 Lipid Panel 03/07/2026 03/07/2025, 05/2024, 01/13/2024, Additional history exists Pneumococcal Vaccine: 50+ Years Completed 06/08/2019, 12/19/2015 Hepatitis C Completed 10/23/2021, 10/23/2021 Dexa Scan (General) Completed 02/12/2022, 06/03/2012, 06/03/2012 PHQ-2 (Physician [place]) Completed 03/07/2025 Meningococcal B Vaccine Aged Out No l onger eligible based on patient's age to complete this topic Meningococcal Vaccine Aged Out No saqib jenn eligible based on patient's age to complete this topic RSV Immunizations Under 20 Months Aged Out No longer eligible based on patient's age to complete this topic Procedures Procedure Name Priority Date/Time Associated Diagnosis Comments CBC W/DIFF AUTOMATED Routine 03/07/2025 1:23 PM CDT Drug therapy HEMOGLOBIN, GLYCOSYLATED Routine 03/07/2025 1:22 PM CDT Drug therapy TSH W/REFLEX Routine 03/07/2025 1:22 PM CDT Drug therapy LIPID PANEL Routine 03/07/2025 1:22 PM CDT Drug therapy COMPREHENSIVE METABOLIC PANEL Routine 03/07/2025 1:22 PM CDT Drug therapy COLLECTION VENOUS BLOOD VENIPUNCTURE Routine 03/07/2025 1:16 PM CDT Drug therapy URINALYSIS AUTO DIP Routine 03/07/2025 Drug therapy SLEEP STUDY GENERIC (SCAN ORDER) 02/07/2025 DIABETIC RETINOPATHY EXAM (NEGATIVE)(SCAN ORDER) Routine 10/31/2022 BONE DENSITY GENERIC (SCAN ORDER) 02/12/2022 HEPATITIS C ANTIBODY Routine 10/23/2021 3:00 PM BANJO REPAIR PERSON Encounter for medical examination to establish care General medical exam Encounter for hepatitis C screening test for low risk patient from Last 3 Months or Most Recently Relevant to Health Maintenance Results * CBC W/DIFF AUTOMATED (03/07/2025 1:23 PM CDT) WBC 4.75 4.00 - 10.80 x10'3/uL 03/07/2025 9:41 PM CDT [facility] RBC 4.90 4.10 - 5.40 x10'6/uL 03/07/2025 9:41 PM CDT [facility] HGB 14.8 12.0 - 16.0 G/DL 03/07/2025 9:41 PM CDT [facility] HCT 44.9 36.0 - 47.0 % 03/07/2025 9:41 PM CDT [facility] MCV 91.6 78.0 - 100.0 FL 03/07/2025 9:41 PM CDT [facility] MCH 30.2 27.0 - 31.0 PG 03/07/2025 9:41 PM CDT [facility] MCHC 33.0 33.0 - 36.0 G/DL 03/07/2025 9:41 PM CDT [facility] RDW 14.0 11.5 - 14.5 % 03/07/2025 9:41 PM CDT [facility] PLT 263 150 - 350 x10'3/uL 03/07/2025 9:41 PM CDT [facility] MPV 9.8 7.4 - 10.4 FL 03/07/2025 9:41 PM CDT [facility] DIFFERENTIAL TYPE AUTOMATED DIFFERENTIAL 03/07/2025 9:41 PM CDT [facility] NEUTROPHILS % 58.3 % 03/07/2025 9:41 PM CDT [facility] LYMPHOCYTES % 27.2 % 03/07/2025 9:41 PM CDT [facility] MONOCYTES % 10.1 % 03/07/2025 9:41 PM CDT [facility] EOSINOPHILS % 3.4 % 03/07/2025 9:41 PM CDT [facility] BASOPHILS % 0.8 % 03/07/2025 9:41 PM CDT [facility] IMMATURE GRANS % 0.2 % 03/07/2025 9:41 PM CDT [facility] ABS. NEUTROPHILS 2.77 1.60 - 8.30 x10'3/uL 03/07/2025 9:41 PM CDT [facility] ABS. LYMPHOCYTES 1.29 0.80 - 4.70 x10'3/uL 03/07/2025 9:41 PM CDT [facility] ABS. MONOCYTES 0.48 0.00 - 1.50 x10'3/uL 03/07/2025 9:41 PM CDT [facility] ABS. EOSINOPHILS 0.16 0.00 - 0.40 x10'3/uL 03/07/2025 9:41 PM CDT [facility] ABS. BASOPHILS 0.04 0.00 - 0.20 x10'3/uL 03/07/2025 9:41 PM CDT [facility] ABS. IMMATURE GRANULOCYTES 0.01 0.00 - 0.03 x10'3/uL 03/07/2025 9:41 PM CDT [facility] 03/07/2025 1:23 PM CDT Megan Leblanc MD LABORATORY Final Result [facility] [address] [place] [address], [place] [phone] * TSH W/REFLEX (03/07/2025 1:22 PM CDT) Pathologist [facility] TSH 1.555 0.358 - 3.740 uIU/ML 03/08/2025 12:40 PM CDT [facility] 03/07/2025 1:22 PM CDT us Megan Leblanc MD LABORATORY Final Result Performing Organization Address [facility] Co de Phone Number [address] [address], [place] [phone] * (ABNORMAL) HEMOGLOBIN, GLYCOSYLATED (03/07/2025 1:22 PM CDT) [facility] HGB A1C 5.8 4.5 - 6.2 % 03/08/2025 1:14 PM CDT [facility] ESTIMATED AVG GLUCOSE 120(H) 74 - 106 MG/DL 03/08/2025 1:14 PM CDT [facility] 03/07/2025 1:22 PM CDT us Megan Leblanc MD LABORATORY Final Result Performing Organization Address [facility] Co de Phone Number [place] [address] [place] [address], [place] [phone] * (ABNORMAL) COMPREHENSIVE METABOLIC PANEL (03/07/2025 1:22 PM CDT) Pathologist [facility] SODIUM S/P/B 137 136 - 145 MMOL/L 03/08/2025 12:40 PM CDT [facility] POTASSIUM S/P/B 4.2 3.5 - 5.1 MMOL/L 03/08/2025 12:40 PM [facility] CHLORIDE S/P/B 101 98 - 107 MMOL/L 03/08/2025 12:40 PM [facility] CO2 28.1 21 - 32 MMOL/L 03/08/2025 12:40 PM [facility] GLUCOSE 100(H) 70 - 99 MG/DL 03/08/2025 12:40 PM [facility] BUN 16 7 - 18 MG/DL 03/08/2025 12:40 PM [facility] CREATININE S/P/B 0.54(L) 0.55 - 1.02 MG/DL 03/08/2025 12:40 PM [facility] CALCIUM S/P/B 9.1 8.4 - 10.5 MG/DL 03/08/2025 12:40 PM [facility] BILIRUBIN TOTAL S/P/B 0.3 0.2 - 1.0 MG/DL 03/08/2025 12:40 PM [facility] ALKALINE PHOSPHATASE S/P/B 109 55 - 142 U/L 03/08/2025 12:40 PM [facility] AST 21 15 - 37 U/L 03/08/2025 12:40 PM [facility] ALT 26 14 - 59 U/L 03/08/2025 12:40 PM T [facility] TOTAL PROTEIN S/P/B 7.2 6.4 - 8.2 G/DL 03/08/2025 12:40 PM [facility] ALBUMIN S/P/B 4.0 3.4 - 5.0 G/DL 03/08/2025 12:40 PM T [facility] ANION GAP 7.9 5 - 15 MMOL/L 03/08/2025 12:40 PM [facility] Comment:REFERENCE RANGE NOT ESTABLISHED OSMOLALITY (CALC) 285 MOSM/KG 025 12:40 PM CDT [facility] Comment:REFERENCE RANGE NOT ESTABLISHED GFR ESTIMATE >90 >90 ML/MIN/1. 73 M2 03/08/2025 12:40 PM CDT [facility] GFR NOTES GFR REFERENCE S: 03/08/2025 12:40 PM CDT [facility] Comment: THE ESTIMATED GFR IS CALCULATED USING THE 2020 CKD-EPI EQUATION. THE FOLLOWING CATEGORIES FOR GRADING RENAL FUNCTION ARE RECOMMENDED BY THE INTERNATIONAL SOCIETY OF NEPHROLOGY (KDIGO 2012 CLINICAL PRACTICE GUIDELINE). G1,NORMAL OR HIGH: >89 ml/min/1.73 m2 G2,MILDLY DECREASED: 60-89 ml/min/1.73 m2 G3A,MILDLY TO MODERATELY DECREASED: 45-59 ml/min/1.73 m2 G3B,MODERATELY TO SEVERELY DECREASED: 30-44 ml/min/1.73 m2 G4,SEVERELY DECREASED: 15-29 ml/min/1.73 m2 G5,KIDNEY FAILURE: <15 ml/min/1.73 m2 03/07/2025 1:22 PM CDT us Megan Leblanc MD LABORATORY Final Result [facility] [address] [place] [address], * LIPID PANEL (03/07/2025 1:22 PM CDT) CHOLESTEROL 135 <200 MG/DL 03/08/2025 12:40 PM CDT [facility] TRIGLYCERIDES 70 <150 MG/DL 03/08/2025 12:40 PM CDT [facility] HDL 65 >40 MG/DL 03/08/2025 12:40 PM CDT [facility] LDL-C 56 <100 MG/DL 03/08/2025 12:40 PM CDT [facility] VLDL CALCULATION 14 5 - 28 MG/DL 03/08/2025 12:40 PM CDT [facility] CHOL/HDL RATIO 2.1 0.0 - 4.0 03/08/2025 12:40 PM CDT [facility] LDL/HDL 0.9 0.41 - 2.13 03/08/2025 12:40 PM CDT [facility] NON HDL CHOLESTEROL 70 <140 MG/DL 03/08/2025 12:40 PM CDT [facility] 03/07/2025 1:22 PM CDT us Megan Leblanc MD LABORATORY Final Result [facility] SYLWIA [place] [address] [facility] [place] [address], [place] [phone] * (ABNORMAL) URINALYSIS AUTO DIP (03/07/2025) COLOR (U) YELLOW YELLOW [address], [place] TRANSPARENCY CLEAR CLEAR MG[address], [place] GLUCOSE (U) NEGATIVE NEGATIVE MG/DL MG-[address], [place] BILIRUBIN (U) NEGATIVE NEGATIVE MG-[address], [place] KETONES MG/DL (U) NEGATIVE NEGATIVE MG/DL MG-[address], [place] SPECIFIC GRAVITY (U) 1.020 1.001 - 1.035 MG[address], [place] BLOOD (U) NEGATIVE NEGATIVE MG-[address], [place] U PH 7.0 5.0 - 9.0 MG-[address], [place] PROTEIN (U) NEGATIVE NEGATIVE mg/dL MG-[address], [place] UROBILINOGEN 0.2 0.2 - 1.0 EU/dL = mg/dL MG-[address], [place] NITRITES NEGATIVE NEGATIVE MG/DL MG-[address], [place] LEUKOCYTES (U) TRACE(A) NEGATIVE MG-[address], [place] URINE SPECIMEN OBTAINED BY CLEAN CATCH PROCEDURE / Unknown 03/07/2025 us Megan Leblanc MD URINE ORDERABLES Final Result Performing Organization Address [facility]/ZIP Co de Phone Number -[phone], [place] [address] [facility] [address] [place] [address], [place] [phone] * SLEEP STUDY GENERIC (SCAN ORDER) (02/07/2025) 02/07/2025 us [facility] Scanned SCANNING Final Resu lt * DIABETIC RETINOPATHY EXAM (NEGATIVE)(SCAN) (10/31/2022) [facility] Scanned SCANNING Final Resu lt Performing Organization Address [facility] de Phone Number [facility] ONBASE * BONE DENSITY GENERIC (02/12/2022) Anatomical Region Laterality Modality Other 02/12/2022 Narrative 02/12/2022 Ordered by an unspecified provider. us Documents Scanned SCANNING Final Result * HEPATITIS C ANTIBODY (10/23/2021 3:00 PM BANJO REPAIR PERSON) HEPATITIS C AB NON-REACTI VE NON-REACT DARI 10/23/2021 9:56 [address] [facility] Comment: ANTIBODIES TO HCV NOT DETECTED. DOES NOT EXCLUDE THE POSSIBILITY OF EXPOSURE TO HCV. 10/23/2021 3:00 PM BANJO REPAIR PERSON us Megan Leblanc MD LABORATORY Final Result Performing Organization Address [facility] Co de Phone Number [facility] [address] [place] [address], [place] [phone] [id number] from Last 3 Months or Most Recently Relevant to Health Maintenance Insurance MEDICARE [facility] [place] [address] Care Teams Air Conditioning Specialist Relationship Specialty Start Date End Date Megan Leblanc MD [address] [address] PCP - General INTERNAL MEDICINE 10/23/21 Emiliano Ventrua MD [address] [address] NEUROLOGY 10/12/24 Jagdish Aden MD [address] [address] Consulting Physician Internal Medicine Pulmonary Disease 10/12/24
--- OUTSIDE RECORDS SUMMARY | 2025-04-30 18:05 | XMS_ITS | Clinical Summary ---
Author Organization [facility] Address [address] [place] [address] Care Team Providers Care Shampooer Name Role Phone Taj Caldera MD Primary Care Provider Allergies Active Allergy Reactions Criticality Noted Date Comments Aloe Itching Low 09/13/2014 Morphine Other (See Comments) 06/07/2013 Nut Flavor Hives High 09/13/2014 Sulfamethoxazole-Trimet hoprim Diarrhea,Confusion,W eakness Low 06/09/2016 Unclassified Drug Other (See Comments) 03/23/20 20 Murbetvig causes pt High Blood Pressure Traspium causes pt High Blood Pressure Medications CALCIUM CARBONATE/VITAMIN D3 (CALCIUM 600 + D,3, ORAL) Take by mouth daily. Active CRANBERRY CONC/ASCORBIC ACID (CRANBERRY PLUS VITAMIN C ORAL) Take by mouth. Activ e GLUC/CHND/OM3/DHA /EPA/FISH/STR (GLUCOSAMINE CHONDROITIN PLUS ORAL) Take by mouth. Activ e ALPHA LIPOIC ACID (LIPOIC ACID ORAL) Take by mouth. Activ e acetaminophen (TYLENOL ARTHRITIS) 650 mg Extended Release tabletIndications :Well female exam with routine gynecological exam,Vaginal Pap smear Take 1 Tablet (650 mg) by mouth 2 times daily as needed for Pain. 180 Tablet 2 6 Active fluticasone (FLONASE) 50 mcg/spray [place], Suspension USE 2 SPRAYS IN EACH NOSTRIL DAILY (NEED APPOINTMENT FOR FURTHER REFILLS ). 48 Gram 8 Active loratadine (CLARITIN) 10 mg tablet Take 10 mg by mouth daily. Active triamcinolone acetonide (KENALOG) 0.1 % Cream Apply to affected area 2 times daily. 80 Gram 9 Active metFORMIN (GLUCOPHAGE XR) 500 mg Extended Release 24 hour tabletIndications :Weight gain TAKE 1 TABLET TWICE A DAY WITH MEALS (MUST MAKE APPOINTMENT PRIOR TO FUTURE REFILLS) 60 Tablet 9 Active meloxicam (MOBIC) 15 mg tabletIndications :Acute bilateral low back pain without sciatica Take 1 Tablet (15 mg) by mouth daily. 90 Tablet 2 9 Active MULTIVITAMIN ORAL Take 1 Tablet by mouth daily. 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 Abnormal vaginal Pap smear 02/11/2017 Overview (02/16/2017): 12/2016: ASCUS, +HR HPV (non- 16/18) 11/2015: not enough cells; +HR HPV 11/2013: normal cells: +HR HPV 01/2017: colpo: atrophy Pseudophakia of both eyes 12/06/2014 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 Insomnia 09/13/2014 Arthralgia 10/20/2013 Hyperlipidemia 06/07/2013 GERD (gastroesophageal reflux disease) 3 Personal history of malignant neoplasm of breast 06/07/2013 Anxiety state 07/02/2010 Resolved Problems Problem Noted Date Diagnosed Date Resolved Date Diabetic retinopathy 02/02/2014 015 Glucose intolerance (impaire d glucose tolerance) 10/20/2013 02/02/2014 Gastric ulcer 10/20/2013 06/07/2018 Immunizations Immunization Administration Dates Next Due (ADACEL/BOOSTRIX)(10 YR UP) TDAP VACCINE, 0.5ML, IM 09/13/2014 (PNEUMOVAX 23)(50 YRS UP) PN EUMOCOCCAL POLYSACCHARIDE (PPV23) 0.5 ML, IM 06/08/2019 Influenza Seasonal Unspecified Formulation IM Influenza Vaccine High Dose 65+ Yrs IM 7,06/09/2013 PREVNAR (PCV13) pneumococcal 13-valent conjugate Vaccine 12/19/2015 Family History Medical History Relation Name Comments Heart Disease Brother 1 Eugene Hypertension Brother 1 Eugene Other Brother 1 Eugene Arthritis-osteo Brother 2 Mor Hypertension Brother 2 Mor Arthritis-osteo Daughter Tiny Other Daughter Tiny Heart Disease Father Les Cataract Mother Parul Diabetes Mother Parul Hypertension Mother Parul Stroke Mother Parul Arthritis-osteo Sister Anna Diabetes Son Mary Heart Disease Son Mary Hypertension Son Mary Kidney Disease Son Mary Amblyopia Neg Hx Blindness Neg Hx Detachment/Tears Neg Hx Glaucoma Neg Hx Macular Degen Neg Hx Strabismus Neg Hx Relation Name Status Comments Brother 1 Eugene Alive Brother 2 Mor Alive Daughter Tiny Alive Father Les Mother Parul Sister Anna Alive Son Mary Social History Tobacco Use Types Packs/Day Years Used Date Smoking Tobacco: Never Smokeless Tobacco: Never Tobacco Cessation:Counseling Given: No Alcohol Use Standard Drinks/Week Comments Yes 4 (1 standard drink = 0.6 oz pure alcohol) About 2 times per week 4 drink limit Comments No Sex and Gender Information Value Date Recorded Sex Assigned at Not on file 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 Gender Identity Not on file Sexual Orientation Not on file Occupation Industry Job Start Date Job End Date Not on file Not on file Not on file Not on file Last Filed Vital Signs Vital Sign Reading Time Taken Comments Blood Pressure 128/76 06/08/2019 11:20 AM CDT Pulse 102 06/08/2019 11:20 AM CDT Temperature 36.6 C (97.8 F) 09/24/2018 11:11 AM 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 Respiratory Rate 16 06/08/2019 11:20 AM CDT Oxygen Saturation 96% 06/08/2019 11:20 AM CDT Inhaled Oxygen Concentration - - Weight 77.1 kg (170 lb) 03/23/2020 8:02 AM CDT Height 160 cm (5' 3) 03/23/2020 8:02 AM CDT Body Mass Index 30.11 03/23/2020 8:02 AM CDT Plan of Treatment Health Maintenance Due Date Last Done Comments DIABETES ANNUAL FOOT EXAM 1963 ZOSTER VACCINE (1 of 2) 1995 DIABETES ANNUAL RETINAL EXAM 12/07/201503/2015, 12/06/2014, 12/06/2014, Additional history exists OSTEOPOROSIS SCREENING 06/03/2017 2 (Previously completed), 06/03/2012 COLORECTAL SCREENING 08/11/2018 08/11/2013, 08/11/2013, 01/21/2006 (Previously completed) DIABETES MICROALBUMIN ANNUAL SCREEN 02/09/2019 02/09/2018, 02/02/2014 LDL CHOLESTEROL ANNUAL 02/09/2019 8, 01/13/2017, 12/06/2015, Additional history exists DIABETES HBA1C Q 6 MONTHS 03/22/20202019, 02/09/2018, 01/20/2017, Additional history exists Traditional Medicare (ACO) A nnual Wellness Visit 06/09/2020 06/08/2019, 12/19/2015, 08/16/2015 RSV VACCINE (60+ or ) (1 - 1-dose 75+ series) 2020 DTAP/TDAP/TD VACCINES (2 - T d or Tdap) 09/13/2024 09/13/2014 INFLUENZA VACCINE (#1) 2025 7, 05/15/2015, 06/09/2013 PNEUMOCOCCAL VACCINE 50+ YEARS Completed 06/08/2019 , 12/19/2015 Procedures Procedure Name Priority Date/Time Associated Diagnosis Comments MICROALBUMIN/CREATI NINE RATIO, RANDOM UR Routine 02/09/2018 11:27 AM CDT Type 2 diabetes mellitus without complication, without long-term current use of insulin ([facility]) LIPID PANEL Routine 02/09/2018 10:43 AM CDT Mixed hyperlipidemia HEMOGLOBIN A1C Routine 02/09/2018 10:43 AM CDT Type 2 diabetes mellitus without complication, without long-term current use of insulin ([facility]) ENDOSCOPY, COLON, DIAGNOSTIC Routine 08/11/2013 XR DEXA BONE DENSITY AXIAL 1 OR MORE SITES Routine 06/03/2012 from Last 3 Months or Most Recently Relevant to Health Maintenance Results * MICROALBUMIN/CREATININE RATIO, RANDOM UR (02/09/2018 11:27 AM CDT) MICROALBUMIN, URINE 1.5 No Reference Range mg/dL 02/09/2018 5:41 PM CDT [facility] CREATININE, URINE 110.2 29.0 - 226.0 mg/dL 02/09/2018 5:41 PM T [facility] Comment: Reference Range varies with fluid intake and diet. MICROALBUMIN/C REAT RATIO, UR 13.6 <25.0 mg/g 02/09/2018 5:41 PM T [facility] Urine URINE SPECIMEN OBTAINED BY CLEAN CATCH PROCEDURE / Unknown Collection / Unknown 02/09/2018 11:27 AM CDT 02/09/2018 11:27 AM CDT [facility] [place] [facility] - 02/09/2018 5:41 PM CDT Condition Microalbumin/Creat ratio Normal Males <17 Normal Females <25 Microalbuminuria Males 17-299 Microalbuminuria Females 25-299 Overt proteinuria >=300 Maggie Leija NP URINE ORDERABLES Final Result [facility] CLIA# [id number] [address] [place] [address] * HEMOGLOBIN A1C (02/09/2018 10:43 AM CDT) HEMOGLOBIN A1C 5.1 4.0 - 6.0 % 02/09/2018 4:25 PM T [facility] [place] [facility] EST. AVG GLUCOSE, A1C 100 mg/dL 02/09/2018 4:25 PM T [facility] Blood Venipuncture / Unknown 02/09/2018 10:43 AM CDT 02/09/2018 10:43 AM CDT [facility] [place] [facility] - 02/09/2018 4:25 PM CDT HGB A1C INTERPRETATION NORMAL: <5.7% PRE-DIABETES: 5.7 - 6.4% DIABETES: 6.5% OR GREATER Maggie Leija NP CHEMISTRY ORDERABLES Final Resul t Performing Organization Address City/[facility]/ZIP Co de Phone Number [facility] [place] [facility] CLIA# [id number] [address] [place] [address] * (ABNORMAL) LIPID PANEL (02/09/2018 10:43 AM CDT) CHOLESTEROL 215(H) <200 mg/dL 02/09/2018 4:37 PM CDT [facility] [place] [facility] TRIGLYCERIDE 85 <150 mg/dL 02/09/2018 4:37 PM CDT [facility] [place] [facility] HDL 87(H) 40 - 59 mg/dL 02/09/2018 4:37 PM T [facility] [place] [facility] LDL CALCULATED 111(H) <100 mg/dL 02/09/2018 4:37 PM T [facility] [place] [facility] NON-HDL CHOLESTEROL 128 <130 mg/dL 02/09/2018 4:37 PM T [facility] [place] [facility] Blood Venipuncture / Unknown 02/09/2018 10:43 AM CDT 02/09/2018 10:43 AM CDT [facility] [place] [facility] - 02/09/2018 4:37 PM CDT TOTAL CHOLESTEROL mg/dL Desirable <200 Borderline high 200-239 High >=240 TRIGLYCERIDES mg/dL Normal <150 Borderline high 150-199 High 200-499 Very high >=500 HDL CHOLESTEROL mg/dL Low <40 Normal 40-59 Desirable >=60 NON HDL CHOLESTEROL mg/dL Optimal <130 Near Optimal 130-159 Borderline High 160-189 Very High >=190 Calculated LDL mg/dL Optimal <100 Near Optimal 100-129 Borderline High 130-159 High 160-189 Very High >=190 ATPIII Guidelines Reference Ranges for Lipid Panels (NCEP/AMA) Maggie Leija NP CHEMISTRY ORDERABLES Final Resul t Performing Organization Address City/[facility]/ZIP Co de Phone Number [facility] [place] [facility] CLIA# [id number] [address] [place] [address] * (ABNORMAL) ENDOSCOPY, COLON, DIAGNOSTIC (08/11/2013) us Jennifer Broderick MD GI PROCEDURE ORDERABLES Edited Result - Final [facility] * XR DEXA BONE DENSITY AXIAL 1 OR MORE SITES (06/03/2012) Anatomical Region Laterality Modality Other us Maggie Leija NP DIAGNOSTIC IMAGING ORDERABLES Fi nal Result from Last 3 Months or Most Recently Relevant to Health Maintenance Insurance MEDICARE PART A AND B [facility] Care Teams Shampooer Relationship Specialty Start Date End Date Taj Caldera MD [facility] [address] [place] [id number] PCP - General Internal Medicine 01/09/21
--- OUTSIDE RECORDS SUMMARY | 2025-04-30 18:05 | XMS_ITS | Encounter Summary ---
Author Organization [facility] Address 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
[2025-04-30 18:10] VITALS: BP 136/93; PULSE 93; RESP 19; TEMP 36.4; O2SAT 97
[2025-04-30 21:31] VITALS: BP 126/67; PULSE 80; RESP 20; TEMP 36; O2SAT 96
--- OUTSIDE RECORDS SUMMARY | 2025-04-30 22:17 | XMS_ITS | Encounter Summary ---
Author Organization [facility] Address 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
--- OUTSIDE RECORDS SUMMARY | 2025-04-30 22:17 | XMS_ITS | Clinical Summary ---
Author Organization [facility] Address [address] [place] [address] Care Team Providers Care Animal Ecologist Name Role Phone Megan Leblanc MD Primary Care Provider [phone] Emiliano Ventura MD Unavailable Jagdish Aden MD Unavailable [phone] Allergies Active Allergy Reactions Criticality Noted Date [...] hyperglycemia, without long-term current use of insulin ([facility]) Take 1 tablet (10 mg total) by mouth daily. 90 tablet 3 5 Active famotidine (PEPCID) 20 MG tabletIndication s:Gastroesophage al reflux disease without esophagitis Take 1 tablet (20 mg total) by mouth daily. 60 tablet 5 5 Active losartan (COZAAR) 50 MG tabletIndication s:Hypertension associated with type 2 diabetes mellitus ([facility] HHS/HCC),Primary hypertension Take 1 tablet (50 mg total) by mouth daily. 90 tablet 3 5 Active omeprazole (PRILOSEC) 20 MG capsuleIndicatio ns:Gastroesophag eal reflux disease without esophagitis Take 1 capsule (20 mg total) by mouth 2 (two) times daily. 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 Avoid NSAIDs. Continue to follow with neurology. No concerns at this time. Noted known hypertensive Memory difficulties 01/23/2021 Other secondary scoliosis, thoracolumbar region 03/20/2020 Diabetes mellitus ([facility]) 09/22/2019 Overview (12/31/2021): Controlled on Metformin. On lisinopril 2.5 mg daily. Lifestyle modification including dietary changes to include less saturated fats, lean meat, more vegetables and exercise at least 30 min every day. Assessment & Plan (10/23/2021 6:41 PM SANDING MACHINE BUFFER): Controlled. A1c of 5.6%. On Metformin. Lifestyle [...] associated wi th type 2 diabetes mellitus ([facility]) Resolved Problems Problem Noted Date Diagnosed Date Resolved Date Malignant tumor of breast ([facility]/HCC [facility]/HCC) 09/22/2019 08/08/2024 Assessment & Plan (10/23/2021 6:41 PM SANDING MACHINE BUFFER): Has been in remission since the year 1999. No new concerns. Close monitoring. No longer following with oncology. Encounters Date Type Department Care Team Description 04/25/2025 Telephone [facility] Physical Therapy [address] [address] Ansley Jennings, REFINERY OPERATOR [employer] RECOVERY No Show 04/24/2025 Telephone [facility] - [address], [address] [place] [address] Jagdish Aden MD Orders 04/11/2025 2:15 PM CDT Office Visit [facility] Physical Therapy [address] [address] Megan Leblanc MD Tolle, Lisa C, PT Back Pain 04/11/2025 Travel 04/04/2025 11:00 AM CDT Office Visit [facility] Physical Therapy [address] [address] Megan Leblanc MD Tolle, Lisa C, PT Low Back Pain; Balance Problem 04/04/2025 Travel 03/21/2025 8:45 AM CDT Office Visit [facility] Physical Therapy [address] [address] Megan Leblanc MD Meyer, Debra S, REFINERY OPERATOR [employer] Back Pain 03/14/2025 3:00 PM CDT Office Visit [facility] Physical Therapy [address] [address] Megan Leblanc MD Tolle, Lisa C, PT Back Pain; Balance Problem 03/14/2025 Travel 03/08/2025 Results Follow-Up [facility] [place] [address] [address] [facility] [address] [place] [address] Megan Leblanc MD CBC W/DIFF AUTOMATED, COMPREHENSIVE METABOLIC PANEL, LIPID PANEL, Additional followed-up results: 3 03/07/2025 12:40 PM CDT Office Visit [facility] [place] [address] [address] [facility] [address] [place] [address] Megan Leblanc MD Follow Up (Chronic medical issues); Anxiety; Depression; Diabetes; Osteoporosis; Osteoarthritis; Sleep Problem; GERD; IBS (W/ diarrhea ); Urinary Incontinence (H/o); Back Pain; Tremors 03/07/2025 Travel 02/15/2025 Telephone [facility] [place] [address] [place] [address] [address] [place] [address] Megan Leblanc MD Medication Request 02/08/2025 11:00 AM CDT Office Visit [facility] [place] [address] [facility] [address] [place] [address] Jagdish Aden MD Follow Up 02/08/2025 Travel [...] 13) 12/19/2015 Tdap (Generic) 09/13/2014 Zoster (Zostavax) [address] Unt/0.65Ml 04/18/2015 Family History Medical History Relation [...] AM CDT Legal Sex Female 11:08 AM SANDING MACHINE BUFFER Gender Identity Female 12/06/2024 8:08 AM CDT [...] Description 05/02/2025 8:45 AM CDT Office Visit [facility] Physical Therapy [facility] [address] Vivienne Rapp, [place] [address] 05/02/2025 1:40 PM CDT Office Visit [facility] Medical Group [facility] [place] [address] [address] [place] [address] Megan Leblanc MD [address] [address] 05/09/2025 12:45 PM CDT Office Visit [facility] Physical Therapy [address] [place] [address] Vivienne Rapp, PT [place], [place] [address] 05/16/2025 1:30 PM CDT Office Visit [facility] Physical Therapy [address] [place] [address] Vivienne Rapp, PT [place], [place] [address] 05/23/2025 3:00 PM CDT Office Visit [facility] Physical Therapy [facility] [address] [address] Vivienne [place], [place] [address] 05/30/2025 3:00 PM CDT Office Visit [facility] Physical Therapy [address] [address] Vivienne [place]app, [place] [address] 06/06/2025 3:00 PM CDT Office Visit [facility] Physical Therapy [address] [address] Vivienne [place], [place] [address] 10/25/2025 2:00 PM SANDING MACHINE BUFFER Office Visit [facility] Medical Group [facility] - [place] [address] [address] [place] [address] Megan Leblanc MD [address] [address] 02/07/2026 2:20 PM CDT Office Visit [facility] Medical Group Pul[facility] - [address] [address] Jagdish Aden MD [address] [address] Health Maintenance Due Date Last Done Comments [...] (General) Completed 02/12/2022, 06/03/2012, 06/03/2012 PHQ-2 (Physician [place]) Completed 03/07/2025 Meningococcal B Vaccine Aged Out [...] HEPATITIS C ANTIBODY Routine 10/23/2021 3:00 PM SANDING MACHINE BUFFER Encounter for medical examination to establish care General medical exam Encounter for hepatitis C screening test for low risk patient from Last 3 Months or Most Recently Relevant to Health Maintenance Results * CBC W/DIFF AUTOMATED (03/07/2025 1:23 PM CDT) WBC 4.75 4.00 - 10.80 x10'3/uL 03/07/2025 9:41 PM CDT [place] RBC 4.90 4.10 - 5.40 x10'6/uL 03/07/2025 9:41 PM CDT [place] HGB 14.8 12.0 - 16.0 G/DL 03/07/2025 9:41 PM CDT [place] HCT 44.9 36.0 - 47.0 % 03/07/2025 9:41 PM CDT [place] MCV 91.6 78.0 - 100.0 FL 03/07/2025 9:41 PM CDT [place] MCH 30.2 27.0 - 31.0 PG 03/07/2025 9:41 PM CDT [place] MCHC 33.0 33.0 - 36.0 G/DL 03/07/2025 9:41 PM CDT [place] RDW 14.0 11.5 - 14.5 % 03/07/2025 9:41 PM CDT [place] PLT 263 150 - 350 x10'3/uL 03/07/2025 9:41 PM CDT [place] MPV 9.8 7.4 - 10.4 FL 03/07/2025 9:41 PM CDT [place] DIFFERENTIAL TYPE AUTOMATED DIFFERENTIAL 03/07/2025 9:41 PM CDT [place] NEUTROPHILS % 58.3 % 03/07/2025 9:41 PM CDT [place] LYMPHOCYTES % 27.2 % 03/07/2025 9:41 PM CDT [place] MONOCYTES % 10.1 % 03/07/2025 9:41 PM CDT [place] EOSINOPHILS % 3.4 % 03/07/2025 9:41 PM CDT [place] BASOPHILS % 0.8 % 03/07/2025 9:41 PM CDT [place] IMMATURE GRANS % 0.2 % 03/07/2025 9:41 PM CDT [place] ABS. NEUTROPHILS 2.77 1.60 - 8.30 x10'3/uL 03/07/2025 9:41 PM CDT [place] ABS. LYMPHOCYTES 1.29 0.80 - 4.70 x10'3/uL 03/07/2025 9:41 PM CDT [place] ABS. MONOCYTES 0.48 0.00 - 1.50 x10'3/uL 03/07/2025 9:41 PM CDT [place] ABS. EOSINOPHILS 0.16 0.00 - 0.40 x10'3/uL 03/07/2025 9:41 PM CDT [place] ABS. BASOPHILS 0.04 0.00 - 0.20 x10'3/uL 03/07/2025 9:41 PM CDT [place] ABS. IMMATURE GRANULOCYTES 0.01 0.00 - 0.03 x10'3/uL 03/07/2025 9:41 PM CDT [place] 03/07/2025 1:23 PM CDT Megan Leblanc MD LABORATORY Final Result [place] [address] [place] [address], [place] [phone] * TSH W/REFLEX (03/07/2025 1:22 PM CDT) Pathologist [facility] TSH 1.555 0.358 - 3.740 uIU/ML 03/08/2025 12:40 PM CDT [place] 03/07/2025 1:22 PM CDT us Megan Leblanc MD LABORATORY Final Result Performing Organization Address [facility] Co de Phone Number [address] [address], [place] [phone] * (ABNORMAL) HEMOGLOBIN, GLYCOSYLATED (03/07/2025 1:22 PM CDT) [facility] HGB A1C 5.8 4.5 - 6.2 % 03/08/2025 1:14 PM CDT [place] ESTIMATED AVG GLUCOSE 120(H) 74 - 106 MG/DL 03/08/2025 1:14 PM CDT [place] 03/07/2025 1:22 PM CDT us Megan Leblanc MD LABORATORY Final Result Performing Organization Address [facility] Co de Phone Number [place] [address] [place] [address], [place] [phone] * (ABNORMAL) COMPREHENSIVE METABOLIC PANEL (03/07/2025 1:22 PM CDT) Pathologist [facility] SODIUM S/P/B 137 136 - 145 MMOL/L 03/08/2025 12:40 PM CDT [place] POTASSIUM S/P/B 4.2 3.5 - 5.1 MMOL/L 03/08/2025 12:40 PM [facility] CHLORIDE S/P/B 101 98 - 107 MMOL/L 03/08/2025 12:40 PM [facility] CO2 28.1 21 - 32 MMOL/L 03/08/2025 12:40 PM [facility] GLUCOSE 100(H) 70 - 99 MG/DL 03/08/2025 12:40 PM [facility] BUN 16 7 - 18 MG/DL 03/08/2025 12:40 PM [facility] CREATININE S/P/B 0.54(L) 0.55 - 1.02 MG/DL 03/08/2025 12:40 PM [facility] CALCIUM S/P/B 9.1 8.4 - 10.5 MG/DL 03/08/2025 12:40 PM [facility] BILIRUBIN TOTAL S/P/B 0.3 0.2 - 1.0 MG/DL 03/08/2025 12:40 PM [facility] ALKALINE PHOSPHATASE S/P/B 109 55 - 142 U/L 03/08/2025 12:40 PM [facility] AST 21 15 - 37 U/L 03/08/2025 12:40 PM [facility] ALT 26 14 - 59 U/L 03/08/2025 12:40 PM T [place] TOTAL PROTEIN S/P/B 7.2 6.4 - 8.2 G/DL 03/08/2025 12:40 PM [facility] ALBUMIN S/P/B 4.0 3.4 - 5.0 G/DL 03/08/2025 12:40 PM T [place] ANION GAP 7.9 5 - 15 MMOL/L 03/08/2025 12:40 PM [facility] Comment:REFERENCE RANGE NOT ESTABLISHED OSMOLALITY (CALC) 285 MOSM/KG 025 12:40 PM CDT [place] Comment:REFERENCE RANGE NOT ESTABLISHED GFR ESTIMATE >90 >90 ML/MIN/1. 73 M2 03/08/2025 12:40 PM CDT [place] GFR NOTES GFR REFERENCE S: 03/08/2025 12:40 PM CDT [place] Comment: THE ESTIMATED GFR IS CALCULATED USING [...] us Megan Leblanc MD LABORATORY Final Result [place] [address] [place] [address], * LIPID PANEL (03/07/2025 1:22 PM CDT) CHOLESTEROL 135 <200 MG/DL 03/08/2025 12:40 PM CDT [place] TRIGLYCERIDES 70 <150 MG/DL 03/08/2025 12:40 PM CDT [place] HDL 65 >40 MG/DL 03/08/2025 12:40 PM CDT [place] LDL-C 56 <100 MG/DL 03/08/2025 12:40 PM CDT [place] VLDL CALCULATION 14 5 - 28 MG/DL 03/08/2025 12:40 PM CDT [place] CHOL/HDL RATIO 2.1 0.0 - 4.0 03/08/2025 12:40 PM CDT [place] LDL/HDL 0.9 0.41 - 2.13 03/08/2025 12:40 PM CDT [place] NON HDL CHOLESTEROL 70 <140 MG/DL 03/08/2025 12:40 PM CDT [place] 03/07/2025 1:22 PM CDT us Megan Leblanc MD LABORATORY Final Result [facility] SYLW[facility] [address] [facility] [place] [address], [place] [phone] * (ABNORMAL) URINALYSIS AUTO DIP (03/07/2025) COLOR (U) YELLOW YELLOW MG[address], [place] TRANSPARENCY CLEAR CLEAR MG-[address], [place] GLUCOSE (U) NEGATIVE NEGATIVE MG/DL MG-[address], [place] BILIRUBIN (U) NEGATIVE NEGATIVE MG-[address], [place] KETONES MG/DL (U) NEGATIVE NEGATIVE MG/DL MG-[address], [place] SPECIFIC GRAVITY (U) 1.020 1.001 - 1.035 MG-[address], [place] BLOOD (U) NEGATIVE NEGATIVE MG-[address], [place] U PH 7.0 5.0 - 9.0 MG-[address], [place] PROTEIN (U) NEGATIVE NEGATIVE mg/dL MG-[address], [place] UROBILINOGEN 0.2 0.2 - 1.0 EU/dL = mg/dL MG-[address], [place] NITRITES NEGATIVE NEGATIVE MG/DL MG-[address], [place] LEUKOCYTES (U) TRACE(A) NEGATIVE MG-[address], [place] URINE SPECIMEN OBTAINED BY CLEAN CATCH PROCEDURE / Unknown 03/07/2025 us Megan Leblanc MD URINE ORDERABLES Final Result Performing Organization Address [facility]/ZIP Co de Phone Number -[phone], [place] [address] [facility] [address] [place] [address], [place] [phone] * SLEEP STUDY GENERIC (SCAN ORDER) (02/07/2025) 02/07/2025 us [facility] Scanned SCANNING Final Resu lt * DIABETIC RETINOPATHY EXAM (NEGATIVE)(SCAN) (10/31/2022) [facility] Scanned SCANNING Final Resu lt Performing Organization Address [facility] [[email or web address]] de Phone Number [facility] ONBASE * BONE DENSITY GENERIC (02/12/2022) Anatomical Region Laterality Modality Other 02/12/2022 Narrative 02/12/2022 Ordered by an unspecified provider. us Documents Scanned SCANNING Final Result * HEPATITIS C ANTIBODY (10/23/2021 3:00 PM SANDING MACHINE BUFFER) HEPATITIS C AB NON-REACTI VE NON-REACT DARI 10/23/2021 9:56 PM SANDING MACHINE BUFFER [facility] Comment: ANTIBODIES TO HCV NOT DETECTED. DOES NOT EXCLUDE THE POSSIBILITY OF EXPOSURE TO HCV. 10/23/2021 3:00 PM SANDING MACHINE BUFFER us eMgan Leblanc MD LABORATORY Final Result Performing Organization Address [facility] Co de Phone Number [facility] [address] [place] [address], [place] [phone] from Last 3 Months or Most Recently Relevant to Health Maintenance Insurance MEDICARE [facility] Care Teams Animal Ecologist Relationship Specialty Start Date End Date Megan Leblanc MD [address] [address] PCP - General INTERNAL MEDICINE 10/23/21 Emiliano Ventura MD [address] [address] NEUROLOGY 10/12/24 Jagdish Aden MD [address] [address] Consulting Physician Internal Medicine Pulmonary Disease 10/12/24
--- OUTSIDE RECORDS SUMMARY | 2025-04-30 22:17 | XMS_ITS | Clinical Summary ---
Author Organization [facility] Address [address] [place] [address] Care Team Providers Care Lpn Name Role Phone Taj Caldera MD Primary Care Provider [phone] Allergies Active Allergy Reactions Criticality Noted Date [...] 2 6 Active fluticasone (FLONASE) 50 mcg/spray [place], Suspension USE 2 SPRAYS IN EACH NOSTRIL [...] on file Legal Sex Female 4:11 AM MOISTURE METER READER Gender Identity Not on file Sexual Orientation Not on file Occupation Industry Job Start Date Job End Date Not on file Not on file Not on file Not on file Last Filed Vital Signs Vital Sign Reading Time Taken Comments Blood Pressure 128/76 06/08/2019 11:20 AM CDT Pulse 102 06/08/2019 11:20 AM CDT Temperature 36.6 C (97.8 F) 09/24/2018 11:11 AM MOISTURE METER READER Respiratory Rate 16 06/08/2019 11:20 AM CDT [...] complication, without long-term current use of insulin ([facility]) LIPID PANEL Routine 02/09/2018 10:43 AM CDT Mixed hyperlipidemia HEMOGLOBIN A1C Routine 02/09/2018 10:43 AM CDT Type 2 diabetes mellitus without complication, without long-term current use of insulin ([facility]) ENDOSCOPY, COLON, DIAGNOSTIC Routine 08/11/2013 XR DEXA BONE DENSITY AXIAL 1 OR MORE SITES Routine 06/03/2012 from Last 3 Months or Most Recently Relevant to Health Maintenance Results * MICROALBUMIN/CREATININE RATIO, RANDOM UR (02/09/2018 11:27 AM CDT) MICROALBUMIN, URINE 1.5 No Reference Range mg/dL 02/09/2018 5:41 PM CDT [facility] CREATININE, URINE 110.2 29.0 - 226.0 mg/dL 02/09/2018 5:41 PM T [facility] Comment: Reference Range varies with fluid intake and diet. MICROALBUMIN/C REAT RATIO, UR 13.6 <25.0 mg/g 02/09/2018 5:41 PM T [facility] Urine URINE SPECIMEN OBTAINED BY CLEAN CATCH PROCEDURE / Unknown Collection / Unknown 02/09/2018 11:27 AM CDT 02/09/2018 11:27 AM CDT [facility] - 02/09/2018 5:41 PM CDT Condition Microalbumin/Creat ratio Normal Males <17 Normal Females <25 Microalbuminuria Males 17-299 Microalbuminuria Females 25-299 Overt proteinuria >=300 Maggie Leija NP URINE ORDERABLES Final Result [facility] CLIA# [id number] [address] [place] [address] * HEMOGLOBIN A1C (02/09/2018 10:43 AM CDT) HEMOGLOBIN A1C 5.1 4.0 - 6.0 % 02/09/2018 4:25 PM T [facility] [employer] EST. AVG GLUCOSE, A1C 100 mg/dL 02/09/2018 4:25 PM T [facility] Blood Venipuncture / Unknown 02/09/2018 10:43 AM CDT 02/09/2018 10:43 AM CDT [facility] - 02/09/2018 4:25 PM CDT HGB A1C INTERPRETATION NORMAL: <5.7% PRE-DIABETES: 5.7 - 6.4% DIABETES: 6.5% OR GREATER Maggie Leija NP CHEMISTRY ORDERABLES Final Resul t Performing Organization Address City/[facility]/ZIP Co de Phone Number [facility] [employer] CLIA# [id number] [address] [place] [address] * (ABNORMAL) LIPID PANEL (02/09/2018 10:43 AM CDT) CHOLESTEROL 215(H) <200 mg/dL 02/09/2018 4:37 PM CDT [facility] TRIGLYCERIDE 85 <150 mg/dL 02/09/2018 4:37 PM CDT [facility] HDL 87(H) 40 - 59 mg/dL 02/09/2018 4:37 PM T [facility] LDL CALCULATED 111(H) <100 mg/dL 02/09/2018 4:37 PM T [facility] NON-HDL CHOLESTEROL 128 <130 mg/dL 02/09/2018 4:37 PM T [facility] Blood Venipuncture / Unknown 02/09/2018 10:43 AM CDT 02/09/2018 10:43 AM CDT [facility] - 02/09/2018 4:37 PM CDT TOTAL CHOLESTEROL [...] ORDERABLES Final Resul t Performing Organization Address City/[facility]/ZIP Co de Phone Number [facility] CLIA# [id number] [address] [place] [address] * (ABNORMAL) ENDOSCOPY, COLON, DIAGNOSTIC (08/11/2013) us Jennifer Broderick MD GI PROCEDURE ORDERABLES Edited Result - Final [facility] * XR DEXA BONE DENSITY AXIAL 1 OR MORE SITES (06/03/2012) Anatomical Region Laterality Modality Other us Maggie Leija NP DIAGNOSTIC IMAGING ORDERABLES Fi nal Result from Last 3 Months or Most Recently Relevant to Health Maintenance Insurance MEDICARE PART A AND B [facility] [place] Care Teams Lpn Relationship Specialty Start Date End Date Taj Caldera MD [facility] [place] [address] [place] [phone] PCP - General Internal Medicine 01/09/21
--- OUTSIDE RECORDS SUMMARY | 2025-04-30 22:17 | XMS_ITS | Encounter Summary ---
Author Organization [email or web address] Address 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
--- OUTSIDE RECORDS SUMMARY | 2025-04-30 22:17 | XMS_ITS | Encounter Summary ---
Author Organization [facility] Address [address] [place] [address] Care Team Providers Care Home Health Registered Nurse Name Role Phone Megan Leblanc MD Primary Care Provider [phone] Emiliano Ventura MD Unavailable Jagdish Aden MD Unavailable [phone] Encounter Details Date Type Department Care Team (Latest Contact Info) Description 03/08/2025 Results Follow-Up [facility] Multispecialty Care - [address] [address] [address] [place] [address] [place] [address] [place] [address] [address] [place], [place] [id number] CBC W/DIFF AUTOMATED, COMPREHENSIVE METABOLIC PANEL, LIPID [...] AM CDT Legal Sex Female 11:08 AM SYSTEM PLANNING 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 Gender Identity Female 12/06/2024 8:08 AM CDT Sexual Orientation Straight 12/06/2024 8: 08 AM CDT documented as of this encounter Plan of Treatment Upcoming Encounters Date Type Department Care Team (Lynn [facility]) Description 05/02/2025 8:45 AM CDT Office Visit [facility] Physical Therapy [address] [place] [id number] Vivienne [place]app, [place] [address] 05/02/2025 1:40 PM CDT Office Visit [facility] Multispecialty Care [address] [address] [address] [place] [address] Megan Leblanc MD [address] [place] [id number] 05/09/2025 12:45 PM CDT Office Visit [facility] Physical [address] [address] Vivienne [place], [place] [address] 05/16/2025 1:30 PM CDT Office Visit [facility] Physical Therapy [address] [place] [phone] Vivienne Rapp, PT [place], [place] [id number] 05/23/2025 3:00 PM CDT Office Visit [facility] Physical Therapy [facility] [address] [address] Vivienne [place] [address] 05/30/2025 3:00 PM CDT Office Visit [facility] Physical Therapy [facility] [address] [address] Vivienne [place] [address] 06/06/2025 3:00 PM CDT Office Visit [facility] Physical [address] [address] Vivienne Rapp, PT [place], [place] [address] 10/25/2025 2:00 PM SYSTEM PLANNING ENGINEER Office Visit [facility] Multispecialty Care - [address] [address] [address] [place] [address] Megan Leblanc MD [address] [place] [address] 02/07/2026 2:20 PM CDT Office Visit [facility] Pul[facility] - [address] [address] Jagdish Aden MD [address] [address] documented as of this encounter Visit Diagnoses Not on filedocumented in this encounter Additional Health Concerns Assessment Noted Time PHQ-9 Depression Total Score: 14 07/2 025 1:41 PM CDT documented as of this encounter Care Teams Home Health Registered Nurse Relationship Specialty Start Date End Date Megan Leblanc MD [address] [address] PCP - General INTERNAL MEDICINE 10/23/21 Emiliano Ventura MD [address] [address] NEUROLOGY 10/12/24 Jagdish Aden MD [facility] [address] Consulting Physician Internal Medicine Pulmonary Disease 10/12/24 documented as of this encounter
--- OUTSIDE RECORDS SUMMARY | 2025-04-30 22:17 | XMS_ITS | Clinical Summary ---
Author Organization [facility] al Address [address] [place] [address] Care Team Providers Care Sound Recordist Name Role Phone Megan Leblanc MD Primary Care Provider [phone] Allergies Active Allergy Reactions Criticality Noted Date Comments Aloe Itching Low 09/13/2014 Sulfamethoxazole-Trimet hoprim Other (See comments) Medium 10/04/2019 Confusion, Diarrhea, Weakness Morphine Other (See comments) Reaction: flu like symptoms, Nut Flavor Hives High 09/13/2014 Nuts Hives High 09/13/2014 Sertraline Other (See comments) Low 10/06/2022 Urinary retention. Tramadol Itching Low 10/23/2021 Unclassified Drug Other (See comments) Low 03/23/20 20 Murbetvig causes pt High Blood Pressure Traspium causes pt High Blood Pressure Medications calcium (CALCIO SCOTT) 500 mg tablet 1 tablet daily 0 2 Active famotidine (PEPCID) 20 mg tablet Take 1 tablet (20 mg total) by mouth daily Active omeprazole (PriLOSEC) 20 mg capsule Take 1 capsule (20 mg total) by mouth daily Active fluticasone propionate (FLONASE) 50 mcg/actuation nasal spray Administer 1 spray into each nostril daily Active loratadine 10 mg capsule Take by mouth Activ e acetaminophen 500 mg capsuleIndicati ons:Fever Take 2 capsules (1,000 mg total) by mouth every 6 (six) hours as needed for pain 0 Active metFORMIN (GLUCOPHAGE) 500 mg tablet Take 1 tablet (500 mg total) by mouth 2 (two) times a day with meals PLEASE HOLD FOR 48 hours after contrast, MAY RESUME ON 10/06/2019. 0 Active clotrimazole-be tamethasone (LOTRISONE) cream clotrimazole-bet amethasone 1 %-0.05 % topical cream APPLY TO THE AFFECTED AND SURROUNDING AREAS OF SKIN BY TOPICAL ROUTE 2 TIMES PER DAY IN THE MORNING AND EVENING FOR 2 WEEKS Active alendronate (FOSAMAX) 70 mg tablet 1 Active amLODIPine (NORVASC) 5 mg tablet 3 Active lisinopriL (PRINIVIL,ZESTR IL) 10 mg tablet 2 Active losartan (COZAAR) 50 mg tablet 2 Active Myrbetriq 50 mg tablet extended release 24 hr 2 Active rosuvastatin (CRESTOR) 10 mg tablet 3 Active albuterol HFA (PROVENTIL HFA,VENTOLIN HFA,PROAIR HFA) 90 mcg/actuation inhaler Inhale 2 puffs every 6 (six) hours as needed 5 Active amitriptyline (ELAVIL) 10 mg tablet Take 1 tablet (10 mg total) by mouth nightly Active buPROPion (WELLBUTRIN) 75 mg tablet 5 Active sertraline (ZOLOFT) 50 mg tablet Take 1 tablet (50 mg total) by mouth daily 5 Active empagliflozin (JARDIANCE) 10 mg tablet Take 1 tablet (10 mg total) by mouth daily 5 Active Active Problems Problem Noted Date Diagnosed Date Memory difficulties 01/23/2021 Assessment & Plan (03/28/2025 11:24 AM CDT): Overall, relatively stable cognitive testing. Acetylcholinesterase inhibitors not indicated at this time. Discussed continual use of CPAP machine. Follow-up in 1 year or sooner if need be. Assessment & Plan (02/08/2024 9:55 AM CDT): Stable testing scores. Encouraged more socialization to help with mood. Continue current medication regimen. Follow-up in one year or sooner if need be. Insomnia 06/01/2012 Overview (12/05/2016): Insomnia History of left mastectomy 06/01/2012 Overview (12/05/2016): H/O left mastectomy Lymphedema of upper extremity 06/01/2012 Overview (12/05/2016): Lymphedema of arm Generalized osteoarthritis 06/01/2012 Overview (12/05/2016): Generalized osteoarthritis Encounters Date Type Department Care Team Description 03/28/2025 11:00 AM CDT Office Visit [facility] [address] [place] [address] Ruben Ceja NP Memory difficulties (Primary Dx) from Last 3 Months Immunizations Immunization Administration Dates Next Due Influenza, Quadrivalent, Hig h Dose, Preservative Free, Intrr 07/02/2020 Influenza, Split 06/01/2012 Influenza, Trivalent, High D ose, Split, Preservative Free, Intramuscular 08/12/2017,06/09/2013 Influenza, Trivalent, IM (MDV) 05/15/2015,2013,05/21/2011 Pneumococcal Conjugate PCV 13 12/19/2015 Pneumococcal Polysaccharide PPV23 06/08/2019 Tdap 09/13/2014 ZOSTER LIVE 04/18/2015 Surgical History Surgery Date Site/Laterality Comments MASTECTOMY Mastectomy HYSTERECTOMY 08/31/1975 - 08/30/1976 Hysterectomy OTHER SURGICAL HISTORY 08/31/2004 - 08/30/2005 breast reconstrution OTHER SURGICAL HISTORY 08/31/2001 - 08/30/2002 urethral spling OTHER SURGICAL HISTORY TRAM flap, abdominoplasty BREAST SURGERY LEG SURGERY 08/31/1995 - 08/30/1996 due to broken leg Medical History Medical History Date Comments Diabetes mellitus (HCC) Hypertension Arthritis Anxiety Bleeding disorder aneurysm Cancer (HCC) 21 years ago Type 2 diabetes mellitus pt stat es it's under control Stroke (HCC) Peptic ulceration Family History Medical History Relation Name Comments Diabetes Daughter Hypertension Daughter Heart disease Father Heart failure Father Congestive hea rt failure; Cause of : Congestive heart failure Diabetes Mother Diabetes mellit us; Hypertension Mother Hypertension; / Hypertension; Osteoarthritis Mother Osteoarthriti s; Other Mother Alive and well; Stroke Mother Stroke; Diabetes Son Heart disease Son Hypertension Son Relation Name Status Comments Daughter Father Mother Alive Son Social History Tobacco Use Types Packs/Day Years Used Date Smoking Tobacco: Never Smokeless Tobacco: Never Tobacco Cessation:Counseling Given: Not Answered Alcohol Use Standard Drinks/Week Comments Yes 0 (1 standard drink = 0.6 oz pur e alcohol) AUDIT-C Answer Date Recorded Q1: How often do you have a drink containing alc ohol? Monthly or less 10/21/2021 Q2: How many drinks containi ng alcohol do you have on a typical day when you are drinking? 1 or 2 10/21/2021 Q3: How often do you have si x or more drinks on one occasion? 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 Gender Identity Female 04/28/2020 2:30 PM CDT Sexual Orientation Straight 04/28/2020 2: 30 PM CDT Occupation Industry Job Start Date Job End Date Retired Not on file Not on file Not on file Obstetrics History Last Filed Vital Signs Vital Sign Reading Time Taken Comments Blood Pressure 123/74 03/28/2025 10:29 AM CDT Pulse 97 03/28/2025 10:29 AM CDT Temperature 36.1 C (97 F) 03/28/2025 10:29 AM CDT Respiratory Rate 18 03/28/2025 10:29 AM CDT Oxygen Saturation 97% 03/28/2025 10:29 AM CDT Inhaled Oxygen Concentration - - Weight 86.4 kg (190 lb 8 oz) 03/28/2025 10:29 AM CDT Height 157.5 cm (5' 2) 03/28/2025 10:29 AM CDT Body Mass Index 34.84 03/28/2025 10:29 AM CDT Plan of Treatment Health Maintenance Due Date Last Done Comments Fall Risk Assessment 1945 Hepatitis C Screening 1945 Hepatitis B Screening 1963 Well Visit 65+ 2010 Osteoporosis Screening-Bone Density Scan 06/03/2014 06/03/2012, 06/03/2012 Zoster Vaccine (2 of 3) 06/13/2015 04/18/2015 Depression Screening 10/03/2020 10/03/2019 Covid-19 Vaccine (2 - 2023-2 5 season) 2024 09/03/2021 DTaP/Tdap/Td Vaccine (2 - Td or Tdap) 09/13/2024 09/13/2014 Influenza Vaccine (#1) 2025 4, 09/03/2021, 07/02/2020, Additional history exists Colon Cancer Screening-CT Colonography Discontinued 08/11/2013 Colon Cancer Screening-Colonoscopy Discontinued 08/11/2013 Colon Cancer Screening-DNA Stool Discontinued 08/11/20 13 Colon Cancer Screening-FIT Discontinued 08/11/2013 Colon Cancer Screening-FOBT Discontinued 08/11/2013 Colon Cancer Screening-Sigmoidoscopy Discontinued 08/11/2013 Colorectal Cancer Screening Discontinued Breast Cancer Screening-Mammogram Discontinued 017, 12/25/2015 Pneumococcal vaccine 65+ Completed 06/08/2019, 11/30 Procedures Procedure Name Priority Date/Time Associated Diagnosis Comments SCREENING MAMMOGRAM BILATERAL W JACKSON W IMPLANTS Routine 01/15/2017 12:00 AM CDT COLONOSCOPY REPORT 08/11/2013 from Last 3 Months or Most Recently Relevant to Health Maintenance Results * Screening Mammogram bilateral W Jackson w implants (01/15/2017 12:00 AM CDT) Anatomical Region Laterality Modality Breast Bilateral Mammography 01/15/2017 5:30 PM CDT Narrative 01/15/2017 5:30 PM CDT - SCRN IMPLANTS W JACKSON BI UNILATERAL RIGHT DIGITAL SCREENING MAMMOGRAM 3D/2D WITH AUGMENTATION: 01/15/2017 Comparison is made to exams dated: 12/25/2015, 09/13/2014, and 06/03/2012 [facility]. The tissue of the right breast is heterogeneously dense. This may lower the sensitivity of mammography. There are benign calcifications right breast. Right breast implant is stable and intact. No significant masses, calcifications, or other findings are seen in the breast. There has been no significant interval change. IMPRESSION: BENIGN There is no mammographic evidence of malignancy. A 1 year screening mammogram is recommended. The patient will be contacted by letter. Akanksha Marie M.D. lrp/penrad:01/19/2017 07:38:19 letter sent: Normal Exam Mammogram BI-RADS: 2 Benign Radiologist: AKANKSHA MARIE M.D. Attending: MAGGIE ZAMBRANO Requesting: MAGGIE ZAMBRANO Requesting Requesting ID: [id number] Attending Attending ID: [id number] Completed Time: 01/15/2017 12:30 AM Dictated Time: N/A Transcribed Time: 01/20/2017 2:59 PM Signed by: AKANKSHA MARIE M.D. on 01/20/2017 2:59 PM Report To 1 ID: Report To 1 Name: , Report To 1 FAX: Report To 2 ID: Report To 2 Name: , Report To 2 FAX: Report To 3 ID: Report To 3 Name: , Report To 3 FAX: NextGen Order #: Procedure Note Miscellaneous, Not In File / Provider, MD Taras - 01/25/2017 - SCRN IMPLANTS W JACKSON BI UNILATERAL RIGHT DIGITAL SCREENING MAMMOGRAM 3D/2D WITH AUGMENTATION: 01/15/2017 Comparison is made to exams dated: 12/25/2015, 09/13/2014, and 06/03/2012 [facility]. The tissue of the right breast is heterogeneously dense. This may lower the sensitivity of mammography. There are benign calcifications right breast. Right breast implant is stable and intact. No significant masses, calcifications, or other findings are seen in the breast. There has been no significant interval change. IMPRESSION: BENIGN There is no mammographic evidence of malignancy. A 1 year screening mammogram is recommended. The patient will be contacted by letter. Akanksha Marie M.D. lrp/penrad:01/19/2017 07:38:19 letter sent: Normal Exam Mammogram BI-RADS: 2 Benign Radiologist: AKANKSHA MARIE M.D. Attending: MAGGIE ZAMBRANO Requesting: MAGGIE ZAMBRANO Requesting Requesting ID: [id number] Attending Attending ID: [id number] Completed Time: 01/15/2017 12:30 AM Dictated Time: N/A Transcribed Time: 01/20/2017 2:59 PM Signed by: AKANKSHA MARIE M.D. on 01/20/2017 2:59 PM Report To 1 ID: Report To 1 Name: , Report To 1 FAX: Report To 2 ID: Report To 2 Name: , Report To 2 FAX: Report To 3 ID: Report To 3 Name: , Report To 3 FAX: NextGen Order #: Maggie Zambrano UPHOLSTERY SEWER IMG MAMMO PROCEDURES Final Resu lt * COLONOSCOPY REPORT (08/11/2013) Anatomical Region Laterality Modality Other Narrative 08/11/2013 Ordered by an unspecified provider. Historical Provider GI PROCEDURE ORDERABLES F inal Result from Last 3 Months or Most Recently Relevant to Health Maintenance Insurance MEDICARE [facility] ACCESS CHOICE [place] [address] MEDICARE BLUE ACCESS OOS [facility] [place] [address] Care Teams Sound Recordist Relationship Specialty Start Date End Date Megan Leblanc MD [address] [address] PCP - General Internal Medicine 10/21/22
[2025-04-30 23:23] LABS: Estimated CRCL calculation 50 ml/min; Estimated Glomerular Filt Rate > 60
[2025-04-30] MEDS: HYDROcodone/acetaminophen (*CRX) 5-325 MG TABLET 1 TAB PO (23:40)
--- NOTE | 2025-05-01 00:13 | ED.FALL ---
HPI - Fall General Chief Complaint: Fall Stated Complaint: fall Time Seen by Provider: 04/30/25 22:06 Source: patient Mode of arrival: ambulatory Limitations: no limitations History of Present Illness HPI Narrative: Patient is a 79-year-old female who presents the ED after a fall. Patient reports she was working in her garden and stepped up onto a Floor Director lead edge and fell. She hit her head on the concrete patio. Sustained a hematoma to her right forehead. She did not lose consciousness. Denies any dizziness or lightheadedness before after a fall. Complains of pain to head, neck, right upper back, right shoulder. Denies shortness of breath. Denies chest pain. Denies nausea, vomiting, vision changes, numbness. She is not on anticoagulation. Has not taken anything for pain. Related Data Home Medications ?Medication ?Instructions ?Recorded ?Confirmed ?Last Taken ?Type acetaminophen 650 mg 650 mg PO Q12H PRN Pain 09/14/19 12/17/21 12/24/21 History tablet,extended release famotidine 20 mg tablet 20 mg PO DAILY 09/14/19 12/17/21 12/24/21 History fluticasone propionate 50 1 spray intranasal BID PRN 09/14/19 12/17/21 12/24/21 History mcg/actuation nasal Congestion spray,suspension (Flonase Allergy Relief) metformin 500 mg tablet 500 mg PO BID 09/14/19 12/17/21 12/24/21 History omeprazole 20 mg capsule,delayed 20 mg PO DAILY 09/14/19 12/17/21 12/24/21 History release calcium carb-vitamin D3 ER 600 mg 1 tablet PO DAILY 12/17/21 12/17/21 12/24/21 History (1,500 mg)-500 unit tablet,ER 24 hr cholecalciferol (vitamin D3) 50 50 mcg PO DAILY 12/17/21 12/17/21 12/24/21 History mcg (2,000 unit) capsule (Vitamin D3) fexofenadine 180 mg tablet 180 mg PO DAILY 12/17/21 12/17/21 12/24/21 History glucosamine sulfate 500 mg tablet 500 mg PO DAILY 12/17/21 12/17/21 12/24/21 History (Glucosamine) mirabegron 25 mg tablet,extended 25 mg PO DAILY 12/17/21 12/17/2122 History release 24 hr (Myrbetriq) vitamin E 400 unit tablet 450 mg PO DAILY 12/17/21 12/17/21 12/24/21 History Allergies Allergy/AdvReac Type Severity Reaction Status Date / Time aloe Allergy Itching Verified 12/26/21 07:40 morphine Allergy Other Verified 12/26/21 07:40 sulfamethoxazole (From Allergy Confusion Verified 12/26/21 07:40 Bactrim) trimethoprim (From Bactrim) Allergy Confusion Verified 12/26/21 07:40 tramadol AdvReac Itching Verified 12/26/21 07:40 Review of Systems Review of Systems: All systems reviewed & are unremarkable except as noted in HPI. All systems reviewed & are unremarkable except as noted in HPI and below PMFSH Past Medical History Medical History PUD (peptic ulcer disease) CVA (cerebral vascular accident) Diabetes Surgical History Surgical History No pertinent past surgical history Social History Social History Smoking status: Never smoker Substance use type: does not use Living arrangements: alone Gender identity (if verbalized by the patient): Female Spiritual care concerns: No Exam Narrative: GENERAL: Elderly but well appearing, obese with BMI of 33.9, non-toxic, in no acute distress. HEAD: Normocephalic. Hematoma/bruising/swelling to R forehead/superior periorbital region EYES: PERRL/EOMI, conjunctiva clear, no pain with EOM NECK: No appreciable midline cervical spinal tenderness. RESPIRATORY: Airway patent, respirations nonlabored. Clear to auscultation bilaterally, no rales, rhonchi, wheezing. CARDIOVASCULAR: Regular rate and rhythm without murmurs, rubs, or gallops. ABDOMINAL: Soft, nontender, nondistended. Normoactive BS. MUSCULOSKELETAL: Moves all extremities. No gross deformities. Mild tenderness throughout thoracic midline spine along lower thoracic region at the level of the inferior scapulas. No palpable bony deformities or step-offs. Mild tenderness to palpation diffusely throughout right thoracic region/posterior ribcage. SKIN: Warm, dry, normal color. NEURO: A&O X3. Speech clear. Cranial nerves II-XII grossly intact. Steady gait. No ataxic movements. No focal deficits PSYCHIATRIC: Appropriate mood and affect. Normal interaction. Course Vital Signs Vital signs: Vital Signs Temperature 97.6 F 04/30/25 18:10 Pulse Rate 93 04/30/25 18:10 Respiratory Rate 19 04/30/25 18:10 Blood Pressure 136/93 H 04/30/25 18:10 Pulse Oximetry 97 04/30/25 18:10 Oxygen Delivery Room Air 04/30/25 18:10 Temperature 96.8 F L 04/30/25 21:31 Pulse Rate 80 04/30/25 21:31 Respiratory Rate 20 04/30/25 21:31 Blood Pressure 126/67 04/30/25 21:31 Pulse Oximetry 96 04/30/25 21:31 Oxygen Delivery Room Air 04/30/25 18:10 MDM - Fall MDM Narrative Medical decision making narrative: Patient presented to ED status post ground level mechanical fall, head injury, hematoma to right frontal region. Also reporting pain to right upper back. Vital signs are stable upon arrival. Patient is neurologically intact. She is not on anticoagulation. Denying chest pain or shortness of breath. CT brain and cervical spine without acute traumatic findings. CT of thoracic spine without acute fracture. X-ray right shoulder negative X-ray of chest initially ordered from triage showing possible right posterior rib fractures. CT of chest was obtained and does not show any evidence of rib fracture or acute pulmonary etiology, pneumothorax, pulmonary contusion. Patient was updated on imaging findings, overall reassuring workup. Feel she is safe for discharge home at this time. Discussed rice therapy, continued pain management at home. Discussed close follow-up with PCP for further evaluation. Given strict return precautions including signs and symptoms of delayed brain bleed, which family is concerned about. Patient voiced understanding of feels comfortable going home. Discharged in stable condition Medical Records Attestation: I reviewed the patient's medical records. Lab Data Attestation: I reviewed the patient's lab results. 04/30/25 23:21 Labs: Lab Results 04/30/25 Range/Units 23:21 Creatinine 0.80 (0.7-1.2) mg/dL Estim Creat Clear Calc 50 ml/min Estimated GFR > 60 (59 - ) Imaging Data Attestation: I personally reviewed and interpreted this imaging study as follows: Radiologist's impression: STAT RAD CT C-spine: Impression: No acute fracture. Hypertrophic degenerative changes. There is a grade 1 spondylolisthesis of the for on C5 and C6 on C7. There are multilevel disc protrusions most pronounced at C2-3. No incidental findings. Stat rad CT chest with contrast: Impression: No pneumothorax or pulmonary contusion. No evidence of thoracic aortic aneurysm or dissection. There are old right rib fractures. Incidental findings: There are postoperative changes involving the left breast. There is a right breast implant. Stat rad CT T-spine: Impression: No acute fracture. Hypertrophic degenerative changes. No incidental findings. Stat rad XR right shoulder: Impression: No acute fracture dislocation. Hypertrophic degenerative changes. No incidental findings. ITS Impressions Head CT 04/30/25 19:49 IMPRESSION: 1. No fracture or acute intracranial process. 2. Interval progression of mild to moderate scattered white matter hypoattenuation consistent with chronic small vessel ischemic disease. Chest X-Ray 04/30/25 20:51 IMPRESSION: 1. No acute cardiopulmonary disease. 2. A few likely subacute healing posterior right fourth-seventh rib fractures. Discharge Plan Discharge Clinical Impression: Fall from ground level, Strain of thoracic back region Closed head injury Qualifiers: Encounter type: initial encounter Qualified Code(s): S09.90XA - Unspecified injury of head, initial encounter Hematoma of frontal scalp Qualifiers: Encounter type: initial encounter Qualified Code(s): S00.03XA - Contusion of scalp, initial encounter Patient Disposition: Home Condition: Stable Instructions: Antibiotic Form, Head Injury (ED), Hematoma (ED), Thoracic Back Strain (ED) Additional Instructions: Your imaging here did not show any evidence of traumatic findings. You will likely be sore over the next few days. Recommend Tylenol, ibuprofen as needed for pain. Recommend ice, lidocaine patches to areas of pain. [place] as needed for more severe pain. Follow-up with your primary care doctor for further evaluation. Return to the ED if you experience worsening or severe pain, recurrent fall or injury, severe dizziness, severe headaches, passing out, vision changes, slurred speech or confusion, numbness or weakness or leg, or any other symptoms of concern. Patient Language: Albanian Prescriptions: New hydrocodone-acetaminophen 5-325 mg tablet 1 tablet PO Q6H PRN (Reason: pain) Qty: 5 0RF lidocaine 5 % adhesive patch,medicated 1 patch topical DAILY Qty: 15 0RF Rx Instructions: leave on most painful area for up to 12 hrs No Action metformin 500 mg Tablet 500 mg PO BID acetaminophen 650 mg Tablet Extended Release 650 mg PO Q12H PRN (Reason: Pain) famotidine 20 mg Tablet 20 mg PO DAILY omeprazole 20 mg Capsule,Delayed Release(Dr/Ec) 20 mg PO DAILY fluticasone propionate [Flonase Allergy Relief] 50 mcg/actuation [place],Suspension 1 spray INTRANASAL BID PRN (Reason: Congestion) glucosamine sulfate [Glucosamine] 500 mg Tablet 500 mg PO DAILY fexofenadine 180 mg Tablet 180 mg PO DAILY vitamin E 400 unit Tablet 450 mg PO DAILY cholecalciferol (vitamin D3) [Vitamin D3] 50 mcg (2,000 unit) Capsule 50 mcg PO DAILY All Day Calcium 600 mg(1,500mg) -500 unit Tablet Extended Release 24 Hr 1 tablet PO DAILY Myrbetriq 25 mg Tablet Extended Release 24 Hr 25 mg PO DAILY Follow-up/Referrals: Benji,MD Megan [Primary Care Provider, Unknown] Time of Disposition: 00:35
== END 2025-05-01 00:54 | disposition home or self-care (01) ==
PROVIDERS: Emergency Provider Physician Assistant; PCP Internal Medicine
DX: S00.83XA Contusion of other part of head, initial encounter (principal); S29.012A Strain of muscle and tendon of back wall of thorax, initial encounter; S22.31XA Fracture of one rib, right side, initial encounter for closed fracture; E11.9 Type 2 diabetes mellitus without complications; Z86.73 Personal history of transient ischemic attack (TIA), and cerebral infarction without residual deficits; Z87.11 Personal history of peptic ulcer disease; M19.011 Primary osteoarthritis, right shoulder; M47.812 Spondylosis without myelopathy or radiculopathy, cervical region; Z98.82 Breast implant status; Z90.12 Acquired absence of left breast and nipple; Z79.84 Long term (current) use of oral hypoglycemic drugs; W18.39XA Other fall on same level, initial encounter
CPT/HCPCS: 70450; 71046; 71260; 72125; 73030; 99284; A9270; Q9967

== ENCOUNTER 2025-07-03 18:00 | Emergency (ER) | payer MEDICARE, BC, OTHER, SELFPAY ==
--- NOTE | ~2025-07-03 | XR_ITS ---
XR wrist LT 2V 07/03/2025 20:23 Indication: Left wrist pain after fall Procedure: 2 views left wrist Comparison: No prior studies for comparison. Findings: There is a transverse nondisplaced fracture of the distal radial metaphysis without significant angulation. Osteopenia. Mild polyarticular osteoarthritis of the wrist. Mild soft tissue swelling overlying the ulnar styloid. Impression: 1: Nondisplaced transverse fracture distal radial metaphysis. Reviewed, dictated and finalized at location O. UCT COORDINATOR Impression: 1: Nondisplaced transverse fracture distal radial metaphysis.
--- NOTE | ~2025-07-03 | XR_ITS ---
XR wrist RT 2V 07/03/2025 20:23 Indication: Right wrist pain Procedure: 2 views right wrist Comparison: No prior studies for comparison. Findings: Osteopenia. Mild-moderate polyarticular osteoarthritis. No fracture, subluxation or dislocation. No foreign bodies. Impression: 1: No acute bone or joint abnormality. Reviewed, dictated and finalized at location O. K CATERER Impression: 1: No acute bone or joint abnormality.
--- NOTE | ~2025-07-03 | CT_ITS ---
CT brain wo con HISTORY:fall COMPARISON: None. TECHNIQUE: Axial images were obtained of the head without intravenous contrast. FINDINGS: No acute intracranial hemorrhage, mass effect or midline shift. No extra-axial fluid collections. The calvarium is intact. Visualized paranasal sinuses and mastoid air cells are clear. IMPRESSION: No acute intracranial hemorrhage or extra axial fluid collections. All CT scans at this facility are performed using low dose modulation techniques as appropriate to perform exam including the following: automated exposure control; use of iterative reconstruction technique; adjustment of the mA and/or kV according to patient size (this includes techniques or standardized protocols for targeted exams where dose is matched to indication/reason for exam). Reviewed, dictated and finalized at location S. AGER HAND IMPRESSION: No acute intracranial hemorrhage or extra axial fluid collections. All CT scans at this facility are performed using low dose modulation techniqu es as appropriate to perform exam including the following: automated exposure c ontrol; use of iterative reconstruction technique; adjustment of the mA and/or kV according to patient size (this includes techniques or standardized protocol s for targeted exams where dose is matched to indication/reason for exam).
--- NOTE | ~2025-07-03 | XR_ITS ---
XR shoulder RT min 2V 07/03/2025 20:23 Indication: Right shoulder pain after fall Procedure: 3 views right shoulder Comparison: 04/30/2025 Findings: There are multiple healed right rib fractures. There is severe right glenohumeral joint osteoarthritis. No acute fracture or traumatic malalignment. No soft tissue abnormality. No foreign bodies. Impression: 1: No acute bone or joint abnormality. Reviewed, dictated and finalized at location O. RTMENT OF MATHEMATICS CHAIR Impression: 1: No acute bone or joint abnormality.
--- NOTE | ~2025-07-03 | CT_ITS ---
CT cervical spine wo con HISTORY: fall COMPARISON: None TECHNIQUE: Axial images of the cervical spine were obtained. Multiplanar reconstruction in the coronal, sagittal and axial reformats to evaluate for cervical fracture. FINDINGS: The images demonstrate no acute fracture or paravertebral soft tissue swelling. Degenerative changes with disc space narrowing and facet joint arthropathy are noted. The visualized aspect of the upper lungs are clear. IMPRESSION: No acute fracture or subluxation. All CT scans at this facility are performed using low dose modulation techniques as appropriate to perform exam including the following: automated exposure control; adjustment of the mA and/or kV according to patient size (this includes techniques or standardized protocols for targeted exams where does is matched to indication/reason for exam; i.e. extremities or head); use of iterative reconstruction technique). Reviewed, dictated and finalized at location S. OUNDING TECHNICIAN IMPRESSION: No acute fracture or subluxation. All CT scans at this facility are performed using low dose modulation techniqu es as appropriate to perform exam including the following: automated exposure c ontrol; adjustment of the mA and/or kV according to patient size (this includes techniques or standardized protocols for targeted exams where does is matched to indication/reason for exam; i.e. extremities or head); use of iterative donte nstruction technique).
[2025-07-03 18:27] VITALS: BP 121/57; PULSE 83; RESP 20; TEMP 36.6; O2SAT 100
--- NOTE | 2025-07-03 20:09 | ED.FALL ---
HPI - Fall General Chief Complaint: Fall Stated Complaint: fell, hit head, no LOC, L wrist pain Time Seen by Provider: 07/03/25 19:56 History of Present Illness HPI Narrative: 80-year-old female presenting to the emergency department today after mechanical fall in the yard. Patient states she fell from the grass onto concrete and landed on her wrists and struck her chin. Did not lose consciousness and does not take any blood thinner medications. Was able to go of some assistance. Patient is complaining of pain in her left wrist with flexion and extension as well as some minor pain in her right wrist and right shoulder. Did strike her chin but not complain of any headache or neck pain. Was otherwise in her normal state of health. No vision changes, nausea, vomiting. Did not take anything for pain prior to arrival. Related Data Home Medications ?Medication ?Instructions ?Recorded ?Confirmed ?Last Taken ?Type acetaminophen 650 mg 650 mg PO Q12H PRN Pain 09/14/19 12/17/21 12/24/21 History tablet,extended release famotidine 20 mg tablet 20 mg PO DAILY 09/14/19 12/17/21 12/24/21 History fluticasone propionate 50 1 spray intranasal BID PRN 09/14/19 12/17/21 12/24/21 History mcg/actuation nasal Congestion spray,suspension (Flonase Allergy Relief) metformin 500 mg tablet 500 mg PO BID 09/14/19 12/17/21 12/24/21 History omeprazole 20 mg capsule,delayed 20 mg PO DAILY 09/14/19 12/17/21 12/24/21 History release calcium carb-vitamin D3 ER 600 mg 1 tablet PO DAILY 12/17/21 12/17/21 12/24/21 History (1,500 mg)-500 unit tablet,ER 24 hr cholecalciferol (vitamin D3) 50 50 mcg PO DAILY 12/17/21 12/17/21 12/24/21 History mcg (2,000 unit) capsule (Vitamin D3) fexofenadine 180 mg tablet 180 mg PO DAILY 12/17/21 12/17/21 12/24/21 History glucosamine sulfate 500 mg tablet 500 mg PO DAILY 12/17/21 12/17/21 12/24/21 History (Glucosamine) mirabegron 25 mg tablet,extended 25 mg PO DAILY 04/12/17/21 12/24/21 History release 24 hr (Myrbetriq) vitamin E 400 unit tablet 450 mg PO DAILY 12/17/21 12/17/21 12/24/21 History Allergies Allergy/AdvReac Type Severity Reaction Status Date / Time aloe Allergy Itching Verified 12/26/21 07:40 morphine Allergy Other Verified 12/26/21 07:40 sulfamethoxazole (From Allergy Confusion Verified 12/26/21 07:40 Bactrim) trimethoprim (From Bactrim) Allergy Confusion Verified 12/26/21 07:40 tramadol AdvReac Itching Verified 12/26/21 07:40 nsaids AdvReac Severe bleeding Uncoded 07/03/25 20:43 Review of Systems Review of Systems: As reviewed above in [facility] Past Medical History Medical History PUD (peptic ulcer disease) CVA (cerebral vascular accident) Diabetes Surgical History Surgical History No pertinent past surgical history Social History Social History Smoking status: Never smoker Substance use type: does not use Living arrangements: alone Gender identity (if verbalized by the patient): Female Spiritual care concerns: No Exam Narrative: GENERAL: [Well-appearing, well-nourished, and in no acute distress.] HEAD: [Normocephalic, atraumatic.] EYES: [PERRLA and EOMI.] ENT: Nares clear, no rhinorrhea or epistaxis. Mucous membranes moist. NECK: Supple. CHEST: [Clear to auscultation. No respiratory distress.] HEART: [Regular rate and rhythm]. No murmur heard. [Normal peripheral pulses.] ABDOMEN: [Soft, nondistended], [nontender], [No rigidity or guarding] EXTREMITIES: Normal range of motion. swelling to the dorsal left wrist with some flexion and extension causing pain but full range of motion otherwise. Anger Control Counselor strength 5/5, able to oppose each digit and make a thumbs up and okay sign. Minor tenderness over the dorsum of the right wrist but no step-offs. Tenderness to the right shoulder but no step-offs. no midline neck pain or restricted cervical range of motion. SKIN: Warm, dry, no rash. NEURO: [No focal deficits]. Alert and oriented [x3.] PSYCH: [Normal mood and affect.] Course Vital Signs Vital signs: Vital Signs Temperature 36.6 C 07/03/25 18:27 Pulse Rate 83 07/03/25 18:27 Respiratory Rate 20 07/03/25 18:27 Blood Pressure 121/57 L 07/03/25 18:27 Pulse Oximetry 100 07/03/25 18:27 Oxygen Delivery Room Air 07/03/25 18:27 Temperature 36.6 C 07/03/25 18:27 Pulse Rate 83 07/03/25 18:27 Respiratory Rate 20 07/03/25 18:27 Blood Pressure 121/57 L 07/03/25 18:27 Pulse Oximetry 100 07/03/25 18:27 Oxygen Delivery Room Air 07/03/25 18:27 Procedures Orthopedic Splinting/Casting Injury #1: Splinting/Casting Date: 07/03/25 Splinting/Casting Time: 21:31 Side: left Upper Extremity Injury Location: wrist Upper Extremity Immobilizer: volar splint Splint: customized in ED Pre-Procedure Neuro Vascular Exam: normal Post-Procedure Neuro Vascular Exam: normal MDM - Fall MDM Narrative Medical decision making narrative: 80-year-old female presenting to the emergency department today after mechanical fall in the yard. Patient states she fell from the grass onto concrete and landed on her wrists and struck her chin. Did not lose consciousness and does not take any blood thinner medications. Was able to go of some assistance. Patient is complaining of pain in her left wrist with flexion and extension as well as some minor pain in her right wrist and right shoulder. Did strike her chin but not complain of any headache or neck pain. Was otherwise in her normal state of health. No vision changes, nausea, vomiting. Did not take anything for pain prior to arrival. Normal range of motion. swelling to the dorsal left wrist with some flexion and extension causing pain but full range of motion otherwise. Anger Control Counselor strength 5/5, able to oppose each digit and make a thumbs up and okay sign. Minor tenderness over the dorsum of the right wrist but no step-offs. Tenderness to the right shoulder but no step-offs. No midline neck pain or restricted cervical range of motion. x-rays obtained of bilateral wrists the right shoulder and cervical spine CT and head CT obtained given the mechanism at her age. She is given Naprosyn and Tylenol for analgesia and re-evaluated. X-ray shows nondisplaced transverse distal radius fracture on left wrist and patient placed into a volar splint. Sent home with orthopedics follow-up and referral. Spoke to Dr. Gupta and over the phone for follow-up in his clinic. Other imaging were negative. Patient is safe for discharge. Medical Records Attestation: I reviewed the patient's medical records. Imaging Data Attestation: I personally reviewed and interpreted this imaging study as follows: My impression: Impressions Shoulder X-Ray 07/03/25 20:25 Impression: 1: No acute bone or joint abnormality. Wrist X-Ray 07/03/25 20:26 Impression: 1: Nondisplaced transverse fracture distal radial metaphysis. Wrist X-Ray 07/03/25 20:28 Impression: 1: No acute bone or joint abnormality. Head CT 07/03/25 20:37 IMPRESSION: No acute intracranial hemorrhage or extra axial fluid collections. All CT scans at this facility are performed using low dose modulation techniques as appropriate to perform exam including the following: automated exposure control; use of iterative reconstruction technique; adjustment of the mA and/or kV according to patient size (this includes techniques or standardized protocols for targeted exams where dose is matched to indication/reason for exam). Cervical Spine CT 07/03/25 20:42 IMPRESSION: No acute fracture or subluxation. All CT scans at this facility are performed using low dose modulation techniques as appropriate to perform exam including the following: automated exposure control; adjustment of the mA and/or kV according to patient size (this includes techniques or standardized protocols for targeted exams where does is matched to indication/reason for exam; i.e. extremities or head); use of iterative reconstruction technique). Discharge Plan Discharge Clinical Impression: Distal radius fracture, left Patient Disposition: Home Condition: Stable Instructions: Antibiotic Form, Wrist Fracture in Adults (ED) Additional Instructions: Injury with left wrist distal radius fracture consistent with exam findings. No other broken bones or injuries. Follow-up with the provided orthopedic surgeon in clinic this week. Tylenol and ibuprofen/Naprosyn or [id number] for pain control every 6-8 hours. Return with any emergent concerns. Patient Language: Arabic Prescriptions: New naproxen 375 mg tablet 375 mg PO BID PRN (Reason: pain) Qty: 30 0RF acetaminophen [Tylenol Extra Strength] 500 mg tablet 1,000 mg PO TID PRN (Reason: pain) Qty: 30 0RF No Action metformin 500 mg Tablet 500 mg PO BID acetaminophen 650 mg Tablet Extended Release 650 mg PO Q12H PRN (Reason: Pain) famotidine 20 mg Tablet 20 mg PO DAILY omeprazole 20 mg Capsule,Delayed Release(Dr/Ec) 20 mg PO DAILY fluticasone propionate [Flonase Allergy Relief] 50 mcg/actuation [place],Suspension 1 spray INTRANASAL BID PRN (Reason: Congestion) glucosamine sulfate [Glucosamine] 500 mg Tablet 500 mg PO DAILY fexofenadine 180 mg Tablet 180 mg PO DAILY vitamin E 400 unit Tablet 450 mg PO DAILY cholecalciferol (vitamin D3) [Vitamin D3] 50 mcg (2,000 unit) Capsule 50 mcg PO DAILY All Day Calcium 600 mg(1,500mg) -500 unit Tablet Extended Release 24 Hr 1 tablet PO DAILY Myrbetriq 25 mg Tablet Extended Release 24 Hr 25 mg PO DAILY hydrocodone-acetaminophen 5-325 mg tablet 1 tablet PO Q6H PRN (Reason: pain) Qty: 5 0RF lidocaine 5 % adhesive patch,medicated 1 patch topical DAILY Qty: 15 0RF Rx Instructions: leave on most painful area for up to 12 hrs Follow-up/Referrals: Benji,MD Megan [Primary Care Provider, Unknown] Alessandro Gupta MD [Physician, Orthopedics] - 2 Days Referral Note: Radial fracture Time of Disposition: 21:33
[2025-07-03] MEDS: ACETAMINOPHEN 500 MG TABLET 1000 MG PO (20:38)
--- OUTSIDE RECORDS SUMMARY | 2025-07-03 21:09 | XMS_ITS | Clinical Summary ---
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) LIPID PANEL Routine 02/09/2018 10:43 AM CDT Mixed hyperlipidemia HEMOGLOBIN A1C Routine 02/09/2018 10:43 AM CDT Type 2 diabetes mellitus without complication, without long-term current use of insulin ([facility]) ENDOSCOPY, COLON, DIAGNOSTIC Routine 08/11/2013 XR DEXA BONE DENSITY AXIAL 1 OR MORE SITES Routine 06/03/2012 from Last 3 Months or Most Recently Relevant to Health Maintenance Results * MICROALBUMIN/CREATININE RATIO, RANDOM UR (02/09/2018 11:27 AM CDT) MICROALBUMIN, URINE 1.5 No Reference Range mg/dL 02/09/2018 5:41 PM CDT [facility] CREATININE, URINE 110.2 29.0 - 226.0 mg/dL 02/09/2018 5:41 PM T [facility] Comment: Reference Range varies with fluid intake and diet. MICROALBUMIN/C REAT RATIO, UR 13.6 <25.0 mg/g 02/09/2018 5:41 PM T [facility] Urine URINE SPECIMEN OBTAINED BY CLEAN CATCH PROCEDURE / Unknown Collection / Unknown 02/09/2018 11:27 AM CDT 02/09/2018 11:27 AM CDT Critical access hospital Possible Web [facility] - 02/09/2018 5:41 PM CDT Condition Microalbumin/Creat ratio Normal Males <17 Normal Females <25 Microalbuminuria Males 17-299 Microalbuminuria Females 25-299 Overt proteinuria >=300 Maggie Leija NP URINE ORDERABLES Final Result [facility] CLIA# [id number] [address] [place] [address] * HEMOGLOBIN A1C (02/09/2018 10:43 AM CDT) HEMOGLOBIN A1C 5.1 4.0 - 6.0 % 02/09/2018 4:25 PM T [facility] Possible Web [facility] EST. AVG GLUCOSE, A1C 100 mg/dL 02/09/2018 4:25 PM T [facility] Blood Venipuncture / Unknown 02/09/2018 10:43 AM CDT 02/09/2018 10:43 AM CDT Critical access hospital Possible Web [facility] - 02/09/2018 4:25 PM CDT HGB A1C INTERPRETATION NORMAL: <5.7% PRE-DIABETES: 5.7 - 6.4% DIABETES: 6.5% OR GREATER Maggie Leija NP CHEMISTRY ORDERABLES Final Resul t Performing Organization Address City/[facility]/ZIP Co de Phone Number [facility] Possible Web [facility] CLIA# [id number] [address] [place] [address] * (ABNORMAL) LIPID PANEL (02/09/2018 10:43 AM CDT) CHOLESTEROL 215(H) <200 mg/dL 02/09/2018 4:37 PM CDT [facility] Possible Web [facility] TRIGLYCERIDE 85 <150 mg/dL 02/09/2018 4:37 PM CDT [facility] Possible Web [facility] HDL 87(H) 40 - 59 mg/dL 02/09/2018 4:37 PM T [facility] Possible Web [facility] LDL CALCULATED 111(H) <100 mg/dL 02/09/2018 4:37 PM T [facility] Possible Web [facility] NON-HDL CHOLESTEROL 128 <130 mg/dL 02/09/2018 4:37 PM T [facility] Possible Web [facility] Blood Venipuncture / Unknown 02/09/2018 10:43 AM CDT 02/09/2018 10:43 AM CDT Critical access hospital Possible Web [facility] - 02/09/2018 4:37 PM CDT TOTAL CHOLESTEROL [...] ORDERABLES Final Resul t Performing Organization Address City/[facility]/ZIP Co de Phone Number [facility] Possible Web [facility] CLIA# [id number] [address] [place] [address] * (ABNORMAL) ENDOSCOPY, COLON, DIAGNOSTIC (08/11/2013) us Jennifer Broderick MD GI PROCEDURE ORDERABLES Edited Result - Final [facility] * XR DEXA BONE DENSITY AXIAL 1 OR MORE SITES (06/03/2012) Anatomical Region Laterality Modality Other us Maggie Leija NP DIAGNOSTIC IMAGING ORDERABLES Fi nal Result from Last 3 Months or Most Recently Relevant to Health Maintenance Insurance MEDICARE PART A AND B [facility] Care Teams Bottle Caser Relationship Specialty Start Date End Date Taj Caldera MD [facility] [address] [place] [phone] PCP - General Internal Medicine 01/09/21
--- OUTSIDE RECORDS SUMMARY | 2025-07-03 21:10 | XMS_ITS | Encounter Summary ---
Author Organization [employer] Address 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
--- OUTSIDE RECORDS SUMMARY | 2025-07-03 21:10 | XMS_ITS | Clinical Summary ---
Author Organization [facility] Address [address] [place] [address] Care Team Providers Care Natural Resource Specialist Name Role Phone Megan Leblanc MD Primary Care Provider [phone] Emiliano Ventura MD Unavailable Jagdish Aden MD Unavailable [phone] Allergies Active Allergy Reactions Criticality Noted Date Comments Aloe Itching Low 09/13/2014 Sulfamethoxazole-Trimethop rim Other (see comment) 10/23/2021 Cramping, diarrhea, and confusion. Morphine Other (see comment),GI Upset 06/07/2013 Reaction: flu like symptoms, Nitrofurantoin Myalgias 10/29/2022 Nuts Hives High 09/13/2014 Sulfamethoxazole Memory Loss 10/02/2019 Tramadol Itching 10/23/2021 Trimethoprim Memory Loss 10/02/2019 Medications fluticasone propionate 50 MCG/ACT nasal spray 1 spray by Nasal route daily. Active glucosamine-cho ndroitin 500-400 MG Cap Take 1 capsule by [...] 650 MG Tab CR 8 hr tablet Activ e Magnesium 400 MG TabIndications: Neuropathy Take 400 mg by mouth daily. 90 tablet 3 12/27/19 23 Active lidocaine (HM LIDOCAINE PATCH) 4 % patchIndication s:Musculoskelet al chest pain Place 1 patch onto the skin daily. Remove & Discard patch within 12 hours or as directed by 30 patch 01/07/20 Active CPAP DEVICE, DME,Indications :HOPE (obstructive sleep apnea) Use during sleep; sending to [facility]. 1 Device 07/14/20 Active valACYclovir (VALTREX) 1 g tabletIndicatio ns:Herpes zoster without complication Take 1 tablet (1,000 mg total) by mouth 2 (two) times daily. 14 tablet 08/26/20 23 Active Vitamin B12 100 MCG tablet Take 0.5 tablets (50 mcg total) by mouth daily. Active buPROPion SR (WELLBUTRIN SR) 150 MG 12 hr tabletIndicatio ns:Mild episode of recurrent major depressive disorder Take 1 tablet (150 mg total) by mouth 2 (two) times daily. 180 tablet 1 03/07/20 25 Active albuterol sulfate HFA 108 (90 Base) MCG/ACT inhalerIndicati ons:Allergic rhinitis due to other allergic trigger, unspecified seasonality Inhale 2 puffs into the lungs every 6 (six) hours as needed for Wheezing. 18 g 4 03/07/20 25 Active alendronate (FOSAMAX) 70 MG tabletIndicatio ns:Age-related osteoporosis without current pathological fracture Take 1 tablet (70 mg total) by mouth every 7 days. 4 tablet 11 03/07/20 25 Active cyclobenzaprine (FLEXERIL) 5 MG tabletIndicatio ns:Pleurisy,Acu te right-sided thoracic back pain Take 1 tablet (5 mg total) by mouth nightly as needed. 14 tablet 03/07/20 25 Active diphenoxylate-a tropine (LOMOTIL) 2.5-0.025 MG tabletIndicatio ns:Diarrhea, unspecified type Take 1 tablet by mouth nightly as needed for Diarrhea. 30 tablet 1 03/07/20 25 Active empagliflozin (JARDIANCE) 10 MG tabletIndicatio ns:Type 2 diabetes mellitus with hyperglycemia, without long-term current use of insulin (CMS/HCC HHS/HCC) Take 1 tablet (10 mg total) by mouth daily. 90 tablet 3 03/07/20 25 Active famotidine (PEPCID) 20 MG tabletIndicatio ns:Gastroesopha geal reflux disease without esophagitis Take 1 tablet (20 mg total) by mouth daily. 60 tablet 5 03/07/20 25 Active omeprazole (PRILOSEC) 20 MG capsuleIndicati ons:Gastroesoph ageal reflux disease without esophagitis Take 1 capsule (20 mg total) by mouth 2 (two) times daily. 180 capsule 3 03/07/20 25 Active rosuvastatin (CRESTOR) 10 MG tabletIndicatio ns:Hyperlipidem ia associated with type 2 diabetes mellitus (CMS/HCC HHS/HCC) Take 1 tablet (10 mg total) by mouth nightly at bedtime. at bedtime 90 tablet 3 03/07/20 25 Active metoprolol succinate ER (TOPROL-XL) 25 MG 24 hr tabletIndicatio ns:Essential tremor,Hyperten rena associated with type 2 diabetes mellitus (CMS/HCC HHS/HCC) Take 0.5 tablets (12.5 mg total) by mouth daily. 45 tablet 1 05/02/20 25 Active losartan (COZAAR) 50 MG tabletIndicatio ns:Hypertension associated with type 2 diabetes mellitus (CMS/HCC HHS/HCC) Take 1 tablet (50 mg total) by mouth daily. 90 tablet 3 05/02/20 25 Active colchicine 0.6 MG tabletIndicatio ns:Pleurisy,Acu te right-sided thoracic back pain Take 1 tablet (0.6 mg total) by mouth 2 (two) times daily. Take with food. 30 tablet 05/19/20 25 Active Additional Information Patient not taking.Reported on 06/14/2025 vibegron (GEMTESA) 75 MG tabletIndicatio ns:Mixed stress and urge urinary incontinence TAKE 1 TABLET BY MOUTH DAILY 90 tablet 06/11/20 25 Active methylPREDNISol one, DENNY, (MEDROL DOSEPAK) 4 MG tabletIndicatio ns:Myalgia 6 TABLETS ON DAY ONE, 5 TABLETS DAY TWO, 4 TABLETS DAY THREE, 3 TABLETS DAY FOUR, 2 TABLETS DAY FIVE, AND 1 TABLET DAY SIX 1 each 06/15/20 25 Active sertraline (ZOLOFT) 50 MG tabletIndicatio ns:Mild episode of recurrent major depressive disorder,SANDRA (generalized anxiety disorder) Take 1.5 tablets (75 mg total) by mouth daily. 135 tablet 1 06/14/20 25 Active HYDROcodone-aster taminophen (NORCO) 5-325 MG tabletIndicatio ns:Chronic Pain Take 1 tablet by mouth daily. Indications: Chronic Pain 30 tablet 06/14/20 Active vibegron (GEMTESA) 75 MG tabletIndicatio ns:Mixed stress and urge urinary incontinence Take 1 tablet (75 mg total) by mouth daily. 90 tablet 03/07/20 25 2024 Discontinued sertraline (ZOLOFT) 50 MG tabletIndicatio ns:Mild episode of recurrent major depressive disorder,SANDRA (generalized anxiety disorder) Take 1.5 tablets (75 mg total) by mouth daily. 135 tablet 1 05/02/20 25 2024 Discontinued(R eomirelaer) Hospital, Clinic, or Other Facility Administered Medication Ordered Dose Route Frequency Start Date End Date Status ketorolac (TORADOL) injection 60 mgIndications:Myalgia 60 mg IM Once 06/15/2025 06/15/2025 End ed methylPREDNISolone acetate (DEPO-Medrol) injection 40 mgIndications:Myalgia 40 mg IM Once 06/15/2025 06/15/2025 End ed Active Problems Problem Noted Date Diagnosed Date Essential tremor 05/02/2025 Mild episode of recurrent major depressive disor logan 09/27/2022 Primary hypertension 04/18/2022 Age-related osteoporosis wit hout current pathological fracture 10/23/2021 OAB (overactive bladder) 10/23/2021 History of hemorrhagic cereb rovascular accident (CVA) with residual deficit 06/05/2021 Assessment & Plan (10/23/2021 6:41 PM IT SERVICE DELIVERY MANAGER): Currently stable without any residual deficits. Avoid NSAIDs. Continue to follow with neurology. No concerns at this time. Noted known hypertensive Memory difficulties 01/23/2021 Other secondary scoliosis, thoracolumbar region 03/20/2020 Diabetes mellitus 09/22/2019 Overview (12/31/2021): Controlled on Metformin. On lisinopril 2.5 mg daily. Lifestyle modification including dietary changes to include less saturated fats, lean meat, more vegetables and exercise at least 30 min every day. Assessment & Plan (10/23/2021 6:41 PM IT SERVICE DELIVERY MANAGER): Controlled. A1c of 5.6%. On Metformin. Lifestyle [...] of arm Anxiety state 07/02/2010 Hyperlipidemia associated with type 2 diabetes m ellitus Resolved Problems Problem Noted Date Diagnosed Date Resolved Date Malignant tumor of breast 09/22/2019 Assessment & Plan (10/23/2021 6:41 PM IT SERVICE DELIVERY MANAGER): Has been in remission since the year 1999. No new concerns. Close monitoring. No longer following with oncology. Encounters Date Type Department Care Team Description 06/27/2025 3:00 PM CDT Office Visit [facility] [address] [place] [address] Megan Leblanc MD Haas, Matthew R, PT Re-evaluation 06/27/2025 Travel 06/20/2025 3:00 PM CDT Office Visit [facility] [address] [place] [phone] Megan Leblanc MD Haas, Matthew R, PT Back Pain 06/20/2025 Travel 06/19/2025 Telephone [address] [address] [address] [place] [address] Megan Leblanc MD Medication Request 06/15/2025 1:30 PM CDT Allied Health/Nurse Visit [address] [address] [address] [place] [address] Megan Leblanc MD Allied Health Visit (Pain shot, did not get at appt on 06/14/2025) 06/15/2025 Travel 06/14/2025 12:40 PM CDT Office Visit [address] [address] [address] [place] [address] Megan Leblanc MD Follow Up (Recent fall); Body Aches (Shoulder back and legs. ); Pleuritic Chest Pain; Anxiety; Depression 06/14/2025 Travel 06/13/2025 3:00 PM CDT Office Visit [facility] [address] [address] [address] [place] [phone] Megan Leblanc MD Meyer, Debra S, DIRECTOR OPERATIONS Back Pain 06/13/2025 Travel 06/06/2025 Telephone [facility] [address] [address] [address] [place] [phone] Rigo Harris, PT No Show 05/30/2025 3:00 PM CDT Office Visit [facility] [address] [place] [address] [address] [place] [address] Megan Leblanc MD Haas, Matthew R, PT Back Pain 05/30/2025 Travel 05/23/2025 3:00 PM CDT Office Visit [facility] [address] [place] [phone] Megan Leblanc MD Meyer, Debra S, DIRECTOR OPERATIONS Back Pain 05/23/2025 Travel 05/19/2025 2:40 PM CDT Office Visit [address] [address] [address] [place], [place] [phone] Megan Leblanc MD Follow Up (Acute - fell 3 weeks ago. back is hurting and she feels something catch every once in a while under her right ribs ) 05/19/2025 Travel 05/09/2025 12:45 PM CDT Office Visit [facility] [address] [place] [phone] Megan Leblanc MD Haas, Matthew R, PT Back Pain 05/09/2025 Travel 05/02/2025 1:40 PM CDT Office Visit [address] [address] [address] [place] [address] Megan Leblanc MD Follow Up; Fall (Pt states she has been off balance. Has a bruised eye left. Tony for er for call); Anxiety; Hypertension; Tremors 05/02/2025 Travel 04/30/2025 Scan [employer] INFO SRVCS Scanned, [facility] 04/25/2025 Telephone [facility] [address] [place] [phone] Ansley Jennings, DIRECTOR OPERATIONS No Show 04/24/2025 Telephone [facility] [address] [place] [address] Jagdish Aden MD Orders 04/11/2025 2:15 PM CDT Office Visit [facility] [address] [place] [address] Megan Leblanc MD Tolle, Lisa C, PT Back Pain 04/11/2025 Travel 04/04/2025 11:00 AM CDT Office Visit [facility] [address] [place] [address] Megan Leblanc MD Tolle, Lisa C, PT Low Back Pain; Balance Problem 04/04/2025 Travel from Last 3 Months Immunizations Immunization Administration Dates Next Due Fluzone High Dose (IIV, triv alent, 0.5mL) 06/14/2025,08/08/2024 Fluzone High Dose - >Age 65 (Prefilled Syringe) 07/31/2023,06/20/2022 Influenza (Generic) 05/15/2015, 4,06/01/2012,2010 Influenza Adult (Generic) 09/03/2021,10/2019,08/12/2017,2012 PFIZER COVID-19 (ORIGINAL FORMULATION, PURPLE CAP) mRNA, LNP-S, PF, 30 MCG/0.3 ML DOSE 09/03/2021 Pneumococcal (Pneumovax 23) 06/08/2019 Pneumococcal (Prevnar 13) 12/19/2015 Tdap (Generic) 09/13/2014 Zoster (Zostavax) 02636 Unt/0.65Ml 04/18/2015 Family History Medical History Relation [...] AM CDT Legal Sex Female 11:08 AM IT SERVICE DELIVERY 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 Gender Identity Female 12/06/2024 8:08 AM CDT Sexual Orientation Straight 12/06/2024 8: 08 AM CDT Last Filed Vital Signs Vital Sign Reading Time Taken Comments Blood Pressure 118/87 06/14/2025 12:38 PM CDT Pulse 83 06/14/2025 12:38 PM CDT Temperature 35.9 C (96.7 F) 06/14/2025 12:38 PM CDT Respiratory Rate 16 06/14/2025 12:38 PM CDT Oxygen Saturation 98% 06/14/2025 12:38 PM CDT Inhaled Oxygen Concentration - - Weight 82.6 kg (182 lb 3.2 oz) 06/14/2025 12:38 PM CDT Height 157.5 cm (5' 2) 06/14/2025 12:38 PM CDT Body Mass Index 33.32 06/14/2025 12:38 PM CDT Plan of Treatment Upcoming Encounters Date Type Department Care Team (Late st Contact Info) Description 10/18/2025 2:20 PM IT SERVICE DELIVERY MANAGER Office Visit [facility] [address] [address] [address] [place] [address] Megan Leblanc MD [address] [place] [address] [address] [place] [address] 10/25/2025 2:00 PM IT SERVICE DELIVERY MANAGER Office Visit [facility] [address] [address] [facility] [address] [place] [address] Megan Leblanc MD [address] [facility] [address] [place] [address] 02/07/2026 2:20 PM CDT Office Visit [facility] [address] [address] [facility] [address] [place] [address] Jagdish Aden MD [address] [address] Health Maintenance Due Date Last Done Comments Kidney Health Evaluation 1945 DTaP, Tdap and Td Vaccines (2 - Td or Tdap) 09/13/2024 09/13/2014 Diabetes: Retinopathy Eye Exam 10/31/2024 10/31/2022 COVID-19 Vaccine ( - season) 2025 09/03/2021, 11/03/2020 Hemoglobin A1C 09/07/2025 03/07/2025, 05/2024, 01/13/2024, Additional history exists RSV Immunization or 60+ Years (1 - 1-dose 75+ series) 10/12/2025 Postponed from 2020 (Going to Outside Clinic) Zoster Vaccines (2 of 3) 10/12/2025 04/18/2015 Pos tponed from 06/13/2015 (Going to Outside Clinic) Annual Medicare Wellness Visit 10/13/2025 10/12/2024 Lipid Panel 03/07/2026 03/07/2025, 05/2024, 01/13/2024, Additional history exists Pneumococcal Vaccine: 50+ Years Completed 06/08/2019, 12/19/2015 Dexa Scan (General) Completed 02/12/2022, 06/03/2012, 06/03/2012 PHQ-2 (Physician Magee) Completed 03/07/2025 Influenza Adult Completed 06/14/2025, 1205/2024, 07/31/2023, Additional history exists Hepatitis A Vaccines Aged Out No long er eligible based on patient's age to complete this topic Meningococcal B Vaccine Aged Out No l onger eligible based on patient's age to complete this topic Meningococcal Vaccine Aged Out No saqib jenn eligible based on patient's age to complete this topic RSV Immunizations Under 20 Months Aged Out No longer eligible based on patient's age to complete this topic Procedures Procedure Name Priority Date/Time Associated Diagnosis Comments LIPID PANEL Routine 03/07/2025 1:22 PM CDT Drug therapy HEMOGLOBIN, GLYCOSYLATED Routine 03/07/2025 1:22 PM CDT Drug therapy DIABETIC RETINOPATHY EXAM (NEGATIVE)(SCAN ORDER) Routine 10/31/2022 BONE DENSITY GENERIC (SCAN ORDER) 02/12/2022 from Last 3 Months or Most Recently Relevant to Health Maintenance Results * (ABNORMAL) HEMOGLOBIN, GLYCOSYLATED (03/07/2025 1:22 PM CDT) HGB A1C 5.8 4.5 - 6.2 % 03/08/2025 1:14 PM CDT [facility] ESTIM[facility] AVG GLUCOSE 120(H) 74 - 106 MG/DL 03/08/2025 1:14 PM CDT [facility] 03/07/2025 1:22 PM CDT us Megan Leblanc MD LABORATORY Final Result [facility] [place] [address] [place] [address], [place] [phone] * LIPID PANEL (03/07/2025 1:22 PM CDT) CHOLESTEROL 135 <200 MG/DL 03/08/2025 12:40 PM CDT [facility] TRIGLY[facility] 70 <150 MG/DL 03/08/2025 12:40 PM CDT [facility] HDL 65 >40 MG/DL 03/08/2025 12:40 PM CDT [facility] LDL-C 56 <100 MG/DL 03/08/2025 12:40 PM CDT [facility] VLDL CALCULATION 14 5 - 28 MG/DL 03/08/2025 12:40 PM CDT [facility] CHOL/HDL RATIO 2.1 0.0 - 4.0 03/08/2025 12:40 PM CDT [facility] LDL/HDL 0.9 0.41 - 2.13 03/08/2025 12:40 PM CDT [facility] NON HDL CHOLESTEROL 70 <140 MG/DL 03/08/2025 12:40 PM CDT [facility] 03/07/2025 1:22 PM CDT Megan Leblanc MD LABORATORY Final Result Performing Organization Address City/[facility]/ZIP Co de Phone Number [facility] [address] [place] [address], [place] [phone] * DIABETIC RETINOPATHY EXAM (NEGATIVE)(SCAN) (10/31/2022) us [facility] Scanned SCANNING Final Resu lt [facility] * BONE DENSITY GENERIC (02/12/2022) Anatomical Region Laterality Modality Other 02/12/2022 Narrative 02/12/2022 Ordered by an unspecified provider. us Documents Scanned SCANNING Final Result from Last 3 Months or Most Recently Relevant to Health Maintenance Insurance MEDICARE [facility] [address] Care Teams Natural Resource Specialist Relationship Specialty Start Date End Date Megan Leblanc MD [facility] [address] PCP - General INTERNAL MEDICINE 10/23/21 Emiliano Ventuar MD [facility] [address] [address] NEUROLOGY 10/12/24 Jagdish Aden MD [address] [place] [id number] Consulting Physician Internal Medicine Pulmonary Disease 10/12/24
--- OUTSIDE RECORDS SUMMARY | 2025-07-03 21:10 | XMS_ITS | Encounter Summary ---
[facility] Organization [facility] Address [address] [place] [address] Care Team Providers Care Integrity Engineer Name Role Phone Taj Caldera MD Primary Care Provider [phone] Encounter Details Date Type Department Care Team (Latest Contact Info) Description 04/10/2000 Outpatient Historical [facility] Miles Webster MD [address] [place] [id number] Other dyspnea and respiratory abnormality (Primary Dx) Social History Tobacco Use Types Packs/Day Years Used Date Smoking Tobacco: Never Assessed Comments Unknown Sex and Gender Information Value Date Recorded Sex Assigned at Not on file Legal Sex Female 4:11 AM [employer] Gender Identity Not on file Sexual Orientation Not on file documented as of this encounter Plan of Treatment Not on file documented as of this encounter Visit Diagnoses Diagnosis Other dyspnea and respiratory abnormality- Primary documented in this encounter Care Teams Integrity Engineer Relationship Specialty Start Date End Date Taj Caldera MD [address] [place] [address] [place] [id number] PCP - General Internal Medicine 01/09/21 documented as of this encounter
== END 2025-07-03 22:36 | disposition home or self-care (01) ==
PROVIDERS: Emergency Provider Student in an Organized Health Care Education/Training Program; PCP Internal Medicine
DX: S52.502A Unspecified fracture of the lower end of left radius, initial encounter for closed fracture (principal); E11.9 Type 2 diabetes mellitus without complications; Z86.73 Personal history of transient ischemic attack (TIA), and cerebral infarction without residual deficits; W01.0XXA Fall on same level from slipping, tripping and stumbling without subsequent striking against object, initial encounter; Z79.84 Long term (current) use of oral hypoglycemic drugs
CPT/HCPCS: 29125; 70450; 72125; 73030; 73100; 99284; A9270